=== PATIENT | male | born 1935 | race Caucasian/White ===

== ENCOUNTER 2019-05-12 11:22 | Inpatient (IN) | payer MEDICARE, BC ==
[2019-05-12 11:52] LABS: ADD MAN DIFF? NO
[2019-05-12 11:53] LABS: WHITE BLOOD COUNT 5.8 10^3/ul (4.8-10.8)
[2019-05-12 11:53] LABS: ABNORMAL IP MESSAGE 1; BASOPHILS % 0.5 % (0.0-2.0); EOSINOPHILS # 0.1 10^3/ul (0.0-0.5); EOSINOPHILS % 0.9 % (0.0-7.0); HEMATOCRIT 42.8 % (42.0-52.0); HEMOGLOBIN 14.1 g/dl (14.0-18.0); LYMPHOCYTES # 0.5 10^3/ul (0.8-2.9); LYMPHOCYTES % 9.3 % (15.0-51.0); MEAN CORPUSCULAR HEMOGLOBIN 30.6 pg (29.0-33.0); MEAN CORPUSCULAR HGB CONC 32.9 g/dl (32.0-37.0); MEAN CORPUSCULAR VOLUME 92.8 fl (82.0-101.0); MONOCYTE # 0.5 10^3/ul (0.3-0.9); MONOCYTES % 8.2 % (0.0-11.0); NEUTROPHIL # 4.7 10^3/ul (1.6-7.5); NEUTROPHILS % 80.9 % (39.0-77.0); PLATELET COUNT 245 10^3/UL (140-415); POSITIVE DIFF @See below; RED BLOOD COUNT 4.61 10^6/ul (4.70-6.10); RED CELL DISTRIBUTION WIDTH 13.9 % (11.5-14.5)
[2019-05-12 12:11] LABS: ANION GAP 7 (5-13); BLOOD UREA NITROGEN 13 mg/dl (7-20); CALCIUM 9.5 mg/dl (8.4-10.2); CARBON DIOXIDE 28 mmol/L (21-31); CHLORIDE 104 mmol/L (97-110); GLUCOSE 172 mg/dl (70-220); POTASSIUM 4.3 mmol/L (3.5-5.1); SODIUM 139 mmol/L (135-144)
[2019-05-12 12:23] LABS: TROPONIN-I < 0.012 ng/ml (0.000-0.120)
[2019-05-12] MEDS ORDERED: NACL 0.9% 3 ML SYG IV (14:00)
[2019-05-12] MEDS ORDERED: MAGNESIUM HYDROXIDE 30ML CUP PO (14:00)
[2019-05-12] MEDS ORDERED: CALCIUM CARBONATE 500 MG CHEW TAB PO (14:00)
[2019-05-12] MEDS ORDERED: DOCUSATE SODIUM 100 MG CAP PO (14:00)
[2019-05-12] MEDS ORDERED: ONDANSETRON 4 MG INJ IV ×2 (14:00)
[2019-05-12] MEDS ORDERED: ACETAMINOPHEN 325 MG TAB PO ×2 (14:00)
[2019-05-12] MEDS ORDERED: NITROGLYCERIN (SL) 0.4 MG TAB SL (14:00)
[2019-05-12] MEDS ORDERED: ALBUTEROL 0.083% (NEB) 2.5 MG/3 ML AMP HHN (15:00)
[2019-05-12] MEDS: HEPARIN 5,000 UNIT/1 ML VIAL SC ×2 (16:06→23:50)
[2019-05-12] MEDS: AMLODIPINE 5 MG TAB PO ×2 (16:34→23:12)
[2019-05-12] MEDS: HYDROCHLOROTHIAZIDE 12.5 MG CAP PO (16:35)
[2019-05-12 17:39] LABS: HEMOGLOBIN A1C 5.7 % (0-5.9)
[2019-05-12 21:07] LABS: CREATINE KINASE 139 IU/L (23-200)
[2019-05-12 21:18] LABS: CK INDEX 3.7; TROPONIN-I < 0.012 ng/ml (0.000-0.120)
[2019-05-12 21:19] LABS: CK-MB 5.18 ng/ml (0.0-2.4)
[2019-05-12] MEDS: METOPROLOL 25 MG TAB PO (23:12)
[2019-05-12] MEDS: LOSARTAN 25 MG TAB PO (23:12)
[2019-05-13 03:04] LABS: CREATINE KINASE 176 IU/L (23-200)
[2019-05-13 03:16] LABS: CK INDEX 2.7; TROPONIN-I 0.019 ng/ml (0.000-0.120)
[2019-05-13 03:19] LABS: CK-MB 4.83 ng/ml (0.0-2.4)
[2019-05-13] MEDS: PANTOPRAZOLE (EC) 40 MG TAB PO (05:43)
[2019-05-13] MEDS: HEPARIN 5,000 UNIT/1 ML VIAL SC ×3 (06:37→21:53)
[2019-05-13 08:04] LABS: ADD MAN DIFF? NO
[2019-05-13 08:20] LABS: BASOPHILS % 0.8 % (0.0-2.0); EOSINOPHILS # 0.1 10^3/ul (0.0-0.5); EOSINOPHILS % 2.1 % (0.0-7.0); HEMATOCRIT 45.5 % (42.0-52.0); LYMPHOCYTES # 0.8 10^3/ul (0.8-2.9); LYMPHOCYTES % 14.8 % (15.0-51.0); MEAN CORPUSCULAR HEMOGLOBIN 30.3 pg (29.0-33.0); MEAN CORPUSCULAR VOLUME 91.9 fl (82.0-101.0); MONOCYTE # 0.6 10^3/ul (0.3-0.9); MONOCYTES % 11.1 % (0.0-11.0); NEUTROPHIL # 3.6 10^3/ul (1.6-7.5); NEUTROPHILS % 70.8 % (39.0-77.0); PLATELET COUNT 254 10^3/UL (140-415); RED BLOOD COUNT 4.95 10^6/ul (4.70-6.10); RED CELL DISTRIBUTION WIDTH 13.7 % (11.5-14.5)
[2019-05-13 08:20] LABS: WHITE BLOOD COUNT 5.1 10^3/ul (4.8-10.8)
[2019-05-13] MEDS: FLUTICASONE/VILANTEROL 200-25 INH DEVICE INH (08:27)
[2019-05-13] MEDS: TIOTROPIUM 18 MCG CAPSULE INHA DEV INH (08:28)
[2019-05-13] MEDS: ASPIRIN 81 MG TAB PO (08:28)
[2019-05-13] MEDS: HYDROCHLOROTHIAZIDE 12.5 MG CAP PO (08:29)
[2019-05-13] MEDS: MONTELUKAST 10 MG TAB PO (08:29)
[2019-05-13] MEDS: METOPROLOL 25 MG TAB PO ×2 (08:30→21:42)
[2019-05-13] MEDS: LOSARTAN 25 MG TAB PO ×2 (08:30→21:42)
[2019-05-13] MEDS: AMLODIPINE 5 MG TAB PO ×2 (08:30→21:41)
[2019-05-13 08:46] LABS: ANION GAP 10 (5-13); BLOOD UREA NITROGEN 11 mg/dl (7-20); CALCIUM 9.6 mg/dl (8.4-10.2); CARBON DIOXIDE 30 mmol/L (21-31); CHLORIDE 99 mmol/L (97-110); CHOLESTEROL 151 mg/dl (100-200); GLUCOSE 91 mg/dl (70-220); HDL CHOLESTEROL 49 mg/dl (31-75); LDL CHOLESTEROL,CALCULATED 88 mg/dl; POTASSIUM 3.5 mmol/L (3.5-5.1); SODIUM 139 mmol/L (135-144); TRIGLYCERIDES 72 mg/dl (0-149)
[2019-05-13] MEDS ORDERED: NON-FORMULARY/PATIENT OWN MED (Olmesartan/Amlodipin/Hcthiazid (Olmsrtn-Amldpn-Hctz 40-10-2 ORAL (09:00)
[2019-05-13] MEDS: hydrALAzine 20 MG INJ IV (11:39)
[2019-05-13] MEDS: RISPERIDONE 0.25 MG TAB PO (16:17)
[2019-05-14] MEDS: PANTOPRAZOLE (EC) 40 MG TAB PO (05:58)
[2019-05-14] MEDS: HEPARIN 5,000 UNIT/1 ML VIAL SC ×3 (05:58→21:27)
[2019-05-14] MEDS: ASPIRIN 81 MG TAB PO (09:01)
[2019-05-14] MEDS: HYDROCHLOROTHIAZIDE 12.5 MG CAP PO (09:03)
[2019-05-14] MEDS: LOSARTAN 25 MG TAB PO ×2 (09:03→21:03)
[2019-05-14] MEDS: METOPROLOL 25 MG TAB PO ×2 (09:04→21:02)
[2019-05-14] MEDS: TIOTROPIUM 18 MCG CAPSULE INHA DEV INH (09:05)
[2019-05-14] MEDS: AMLODIPINE 5 MG TAB PO ×2 (09:05→21:03)
[2019-05-14] MEDS: MONTELUKAST 10 MG TAB PO (09:06)
[2019-05-14] MEDS: FLUTICASONE/VILANTEROL 200-25 INH DEVICE INH (09:16)
[2019-05-14] MEDS ORDERED: LORAZEPAM 1 MG TAB PO (12:30)
[2019-05-14] MEDS: QUETIAPINE 25 MG TAB PO (13:39)
[2019-05-14 13:44] LABS: ADD UMIC NO; UR ASCORBIC ACID NEGATIVE (NEGATIVE); UR BILIRUBIN (Dip) NEGATIVE (NEGATIVE); UR BLOOD (Dip) NEGATIVE (NEGATIVE); UR CLARITY CLEAR (CLEAR); UR COLOR YELLOW (YELLOW); UR GLUCOSE (Dip) NEGATIVE (NEGATIVE); UR KETONES (Dip) NEGATIVE (NEGATIVE); UR LEUKOCYTE ESTERASE (Dip) NEGATIVE Leu/ul (NEGATIVE); UR NITRITE (Dip) NEGATIVE (NEGATIVE); UR SPECIFIC GRAVITY (Dip) 1.009 (1.003-1.030); UR TOTAL PROTEIN (Dip) NEGATIVE (NEGATIVE); UR UROBILINOGEN (Dip) NEGATIVE (NEGATIVE)
[2019-05-14] MEDS: THIAMINE 100 MG TAB PO (16:24)
[2019-05-14] MEDS: FOLIC ACID 1 MG TAB PO (16:24)
[2019-05-14 18:59] LABS: AMPHETAMINE/METHAMPHETAMINE NEGATIVE (NEGATIVE); BARBITURATES NEGATIVE (NEGATIVE); BENZODIAZEPINES NEGATIVE (NEGATIVE); CANNABINOIDS NEGATIVE (NEGATIVE); COCAINE NEGATIVE (NEGATIVE); OPIATES NEGATIVE (NEGATIVE)
[2019-05-14] MEDS: CHLORDIAZEPOXIDE 25 MG CAP PO (21:02)
[2019-05-14] MEDS: ATORVASTATIN 20 MG TAB PO (21:02)
[2019-05-15] MEDS: PANTOPRAZOLE (EC) 40 MG TAB PO (06:29)
[2019-05-15 06:56] LABS: ADD MAN DIFF? NO
[2019-05-15 06:59] LABS: BASOPHILS % 0.5 % (0.0-2.0); EOSINOPHILS # 0.3 10^3/ul (0.0-0.5); EOSINOPHILS % 3.8 % (0.0-7.0); HEMATOCRIT 42.3 % (42.0-52.0); LYMPHOCYTES # 1.1 10^3/ul (0.8-2.9); LYMPHOCYTES % 14.2 % (15.0-51.0); MEAN CORPUSCULAR HEMOGLOBIN 30.3 pg (29.0-33.0); MEAN CORPUSCULAR HGB CONC 33.1 g/dl (32.0-37.0); MEAN CORPUSCULAR VOLUME 91.6 fl (82.0-101.0); MEAN PLATELET VOLUME 9.8 fl (7.4-10.4); MONOCYTE # 0.8 10^3/ul (0.3-0.9); MONOCYTES % 10.1 % (0.0-11.0); NEUTROPHIL # 5.3 10^3/ul (1.6-7.5); NEUTROPHILS % 71.1 % (39.0-77.0); PLATELET COUNT 268 10^3/UL (140-415); RED BLOOD COUNT 4.62 10^6/ul (4.70-6.10)
[2019-05-15 06:59] LABS: WHITE BLOOD COUNT 7.4 10^3/ul (4.8-10.8)
[2019-05-15 07:23] LABS: ALBUMIN 3.5 g/dl (3.3-4.9); ANION GAP 6 (5-13); BLOOD UREA NITROGEN 25 mg/dl (7-20); CALCIUM 9.6 mg/dl (8.4-10.2); CARBON DIOXIDE 31 mmol/L (21-31); CHLORIDE 99 mmol/L (97-110); CREATININE 0.87 mg/dl (0.61-1.24); GLUCOSE 127 mg/dl (70-220); MAGNESIUM 2.1 mg/dl (1.7-2.5); PHOSPHORUS 4.2 mg/dl (2.5-4.9); POTASSIUM 4.1 mmol/L (3.5-5.1); SODIUM 136 mmol/L (135-144)
[2019-05-15] MEDS: HEPARIN 5,000 UNIT/1 ML VIAL SC ×3 (07:42→21:57)
[2019-05-15] MEDS: TIOTROPIUM 18 MCG CAPSULE INHA DEV INH (09:03)
[2019-05-15] MEDS: FLUTICASONE/VILANTEROL 200-25 INH DEVICE INH (09:03)
[2019-05-15] MEDS: CHLORDIAZEPOXIDE 25 MG CAP PO ×3 (09:04→21:54)
[2019-05-15] MEDS: FOLIC ACID 1 MG TAB PO (09:04)
[2019-05-15] MEDS: ASPIRIN 81 MG TAB PO (09:04)
[2019-05-15] MEDS: THIAMINE 100 MG TAB PO (09:06)
[2019-05-15] MEDS: MONTELUKAST 10 MG TAB PO (09:06)
[2019-05-15] MEDS: LOSARTAN 25 MG TAB PO ×2 (09:07→21:55)
[2019-05-15] MEDS: METOPROLOL 25 MG TAB PO ×2 (09:07→21:55)
[2019-05-15] MEDS: HYDROCHLOROTHIAZIDE 12.5 MG CAP PO (09:07)
[2019-05-15] MEDS: AMLODIPINE 5 MG TAB PO ×2 (09:07→21:00)
[2019-05-15] MEDS: CLOPIDOGREL 75 MG TAB PO (10:06)
[2019-05-15] MEDS: ATORVASTATIN 20 MG TAB PO (21:54)
[2019-05-16] MEDS: PANTOPRAZOLE (EC) 40 MG TAB PO (05:38)
[2019-05-16] MEDS: HEPARIN 5,000 UNIT/1 ML VIAL SC ×3 (05:40→22:14)
[2019-05-16 05:58] LABS: ADD MAN DIFF? NO
[2019-05-16 06:08] LABS: BASOPHILS % 0.7 % (0.0-2.0); EOSINOPHILS # 0.3 10^3/ul (0.0-0.5); EOSINOPHILS % 5.4 % (0.0-7.0); HEMATOCRIT 43.8 % (42.0-52.0); HEMOGLOBIN 14.1 g/dl (14.0-18.0); LYMPHOCYTES # 0.9 10^3/ul (0.8-2.9); LYMPHOCYTES % 15.2 % (15.0-51.0); MEAN CORPUSCULAR HEMOGLOBIN 30.5 pg (29.0-33.0); MEAN CORPUSCULAR HGB CONC 32.2 g/dl (32.0-37.0); MEAN CORPUSCULAR VOLUME 94.8 fl (82.0-101.0); MONOCYTE # 0.6 10^3/ul (0.3-0.9); MONOCYTES % 10.1 % (0.0-11.0); NEUTROPHIL # 4.1 10^3/ul (1.6-7.5); NEUTROPHILS % 68.1 % (39.0-77.0); PLATELET COUNT 261 10^3/UL (140-415); RED BLOOD COUNT 4.62 10^6/ul (4.70-6.10); RED CELL DISTRIBUTION WIDTH 14.1 % (11.5-14.5)
[2019-05-16 06:08] LABS: WHITE BLOOD COUNT 5.9 10^3/ul (4.8-10.8)
[2019-05-16 06:38] LABS: ALBUMIN 3.4 g/dl (3.3-4.9); ANION GAP 5 (5-13); BLOOD UREA NITROGEN 26 mg/dl (7-20); CALCIUM 9.6 mg/dl (8.4-10.2); CARBON DIOXIDE 31 mmol/L (21-31); CHLORIDE 99 mmol/L (97-110); GLUCOSE 137 mg/dl (70-220); PHOSPHORUS 3.8 mg/dl (2.5-4.9); POTASSIUM 4.2 mmol/L (3.5-5.1); SODIUM 135 mmol/L (135-144)
[2019-05-16] MEDS: FLUTICASONE/VILANTEROL 200-25 INH DEVICE INH (09:11)
[2019-05-16] MEDS: CLOPIDOGREL 75 MG TAB PO (09:12)
[2019-05-16] MEDS: FOLIC ACID 1 MG TAB PO (09:12)
[2019-05-16] MEDS: TIOTROPIUM 18 MCG CAPSULE INHA DEV INH (09:12)
[2019-05-16] MEDS: ASPIRIN 81 MG TAB PO (09:12)
[2019-05-16] MEDS: METOPROLOL 25 MG TAB PO ×2 (09:12→20:01)
[2019-05-16] MEDS: CHLORDIAZEPOXIDE 25 MG CAP PO ×3 (09:12→20:00)
[2019-05-16] MEDS: THIAMINE 100 MG TAB PO (09:13)
[2019-05-16] MEDS: MONTELUKAST 10 MG TAB PO (09:13)
[2019-05-16] MEDS: HYDROCHLOROTHIAZIDE 12.5 MG CAP PO (09:13)
[2019-05-16] MEDS: AMLODIPINE 5 MG TAB PO ×2 (09:14→20:01)
[2019-05-16] MEDS: LOSARTAN 25 MG TAB PO ×2 (09:14→20:00)
[2019-05-16] MEDS: ATORVASTATIN 20 MG TAB PO (20:02)
[2019-05-17] MEDS: PANTOPRAZOLE (EC) 40 MG TAB PO (05:52)
[2019-05-17] MEDS: HEPARIN 5,000 UNIT/1 ML VIAL SC ×3 (05:55→21:38)
[2019-05-17 07:27] LABS: ADD MAN DIFF? NO
[2019-05-17 07:34] LABS: BASOPHILS % 0.7 % (0.0-2.0); EOSINOPHILS # 0.3 10^3/ul (0.0-0.5); EOSINOPHILS % 4.4 % (0.0-7.0); HEMATOCRIT 43.6 % (42.0-52.0); HEMOGLOBIN 14.2 g/dl (14.0-18.0); LYMPHOCYTES # 0.8 10^3/ul (0.8-2.9); LYMPHOCYTES % 14.7 % (15.0-51.0); MEAN CORPUSCULAR HEMOGLOBIN 30.7 pg (29.0-33.0); MEAN CORPUSCULAR HGB CONC 32.6 g/dl (32.0-37.0); MEAN CORPUSCULAR VOLUME 94.4 fl (82.0-101.0); MEAN PLATELET VOLUME 9.8 fl (7.4-10.4); MONOCYTE # 0.6 10^3/ul (0.3-0.9); MONOCYTES % 11.2 % (0.0-11.0); NEUTROPHIL # 3.9 10^3/ul (1.6-7.5); NEUTROPHILS % 68.6 % (39.0-77.0); PLATELET COUNT 225 10^3/UL (140-415); RED BLOOD COUNT 4.62 10^6/ul (4.70-6.10); RED CELL DISTRIBUTION WIDTH 14.1 % (11.5-14.5)
[2019-05-17 07:34] LABS: WHITE BLOOD COUNT 5.6 10^3/ul (4.8-10.8)
[2019-05-17 08:02] LABS: ALBUMIN 3.6 g/dl (3.3-4.9); ANION GAP 7 (5-13); BLOOD UREA NITROGEN 27 mg/dl (7-20); CALCIUM 9.4 mg/dl (8.4-10.2); CARBON DIOXIDE 28 mmol/L (21-31); CHLORIDE 102 mmol/L (97-110); CREATININE 0.64 mg/dl (0.61-1.24); GLUCOSE 127 mg/dl (70-220); PHOSPHORUS 3.6 mg/dl (2.5-4.9); POTASSIUM 5.1 mmol/L (3.5-5.1); SODIUM 137 mmol/L (135-144)
[2019-05-17] MEDS: FLUTICASONE/VILANTEROL 200-25 INH DEVICE INH (09:04)
[2019-05-17] MEDS: ASPIRIN 81 MG TAB PO (09:05)
[2019-05-17] MEDS: FOLIC ACID 1 MG TAB PO (09:05)
[2019-05-17] MEDS: METOPROLOL 25 MG TAB PO ×2 (09:05→21:36)
[2019-05-17] MEDS: CHLORDIAZEPOXIDE 25 MG CAP PO ×3 (09:05→21:35)
[2019-05-17] MEDS: CLOPIDOGREL 75 MG TAB PO (09:05)
[2019-05-17] MEDS: TIOTROPIUM 18 MCG CAPSULE INHA DEV INH (09:05)
[2019-05-17] MEDS: MONTELUKAST 10 MG TAB PO (09:06)
[2019-05-17] MEDS: THIAMINE 100 MG TAB PO (09:06)
[2019-05-17] MEDS: LOSARTAN 25 MG TAB PO ×2 (09:06→21:37)
[2019-05-17] MEDS: AMLODIPINE 5 MG TAB PO ×2 (09:06→21:36)
[2019-05-17] MEDS: HYDROCHLOROTHIAZIDE 12.5 MG CAP PO (09:07)
[2019-05-17 13:43] LABS: ADD UMIC NO; UR ASCORBIC ACID NEGATIVE (NEGATIVE); UR BILIRUBIN (Dip) NEGATIVE (NEGATIVE); UR BLOOD (Dip) NEGATIVE (NEGATIVE); UR CLARITY CLEAR (CLEAR); UR COLOR YELLOW (YELLOW); UR GLUCOSE (Dip) NEGATIVE (NEGATIVE); UR KETONES (Dip) NEGATIVE (NEGATIVE); UR LEUKOCYTE ESTERASE (Dip) NEGATIVE Leu/ul (NEGATIVE); UR NITRITE (Dip) NEGATIVE (NEGATIVE); UR SPECIFIC GRAVITY (Dip) 1.011 (1.003-1.030); UR TOTAL PROTEIN (Dip) NEGATIVE (NEGATIVE); UR UROBILINOGEN (Dip) NEGATIVE (NEGATIVE)
[2019-05-17] MEDS: ATORVASTATIN 20 MG TAB PO (21:37)
[2019-05-18] MEDS: HEPARIN 5,000 UNIT/1 ML VIAL SC ×2 (06:09→12:25)
[2019-05-18] MEDS: PANTOPRAZOLE (EC) 40 MG TAB PO (06:09)
[2019-05-18] MEDS: CHLORDIAZEPOXIDE 25 MG CAP PO ×2 (08:43→12:24)
[2019-05-18] MEDS: FOLIC ACID 1 MG TAB PO (08:43)
[2019-05-18] MEDS: LOSARTAN 25 MG TAB PO (08:44)
[2019-05-18] MEDS: THIAMINE 100 MG TAB PO (08:44)
[2019-05-18] MEDS: MONTELUKAST 10 MG TAB PO (08:44)
[2019-05-18] MEDS: ASPIRIN 81 MG TAB PO (08:44)
[2019-05-18] MEDS: HYDROCHLOROTHIAZIDE 12.5 MG CAP PO (08:44)
[2019-05-18] MEDS: CLOPIDOGREL 75 MG TAB PO (08:45)
[2019-05-18] MEDS: AMLODIPINE 5 MG TAB PO (08:45)
[2019-05-18] MEDS: METOPROLOL 25 MG TAB PO (08:52)
[2019-05-18] MEDS: FLUTICASONE/VILANTEROL 200-25 INH DEVICE INH (08:53)
[2019-05-18] MEDS: TIOTROPIUM 18 MCG CAPSULE INHA DEV INH (08:53)
[2019-05-19 16:37] LABS: VITAMIN B1 (THIAMINE) 193 nmol/L (78-185)
== END 2019-05-18 19:35 | DRG 313 ==
LOC: E/R 11:22 → 2NE 05-15 13:59 → TEL 13:41
PROVIDERS: Internal Medicine
DX: R07.89 Other chest pain (principal); G93.40 Encephalopathy, unspecified; I65.29 Occlusion and stenosis of unspecified carotid artery; I10 Essential (primary) hypertension; R73.03 Prediabetes; Z87.891 Personal history of nicotine dependence; J44.9 Chronic obstructive pulmonary disease, unspecified; R41.0 Disorientation, unspecified; Z72.89 Other problems related to lifestyle; G31.84 Mild cognitive impairment of uncertain or unknown etiology
CPT/HCPCS: 36415; 70545; 70548; 70551; 71045; 80048; 80061; 80069; 80307; 81003; 82550; 82553; 82607; 83036; 83735; 84425; 84443; 84484; 85025; 93005; 93306; 97116; 97161; 97167; 97530; 99285-25; G0378

== ENCOUNTER 2019-05-19 22:20 | Inpatient (IN) | payer MEDICARE, BC, OTHER ==
[2019-05-19] MEDS: SOD CHLORIDE 0.9% 500 ML IV (02:12)
[2019-05-19 22:55] LABS: ADD MAN DIFF? NO
[2019-05-19 22:57] LABS: ABNORMAL IP MESSAGE 1; BASOPHILS % 0.2 % (0.0-2.0); HEMATOCRIT 45.3 % (42.0-52.0); HEMOGLOBIN 14.2 g/dl (14.0-18.0); LYMPHOCYTES # 0.3 10^3/ul (0.8-2.9); MEAN CORPUSCULAR HEMOGLOBIN 30.5 pg (29.0-33.0); MEAN CORPUSCULAR HGB CONC 31.3 g/dl (32.0-37.0); MEAN CORPUSCULAR VOLUME 97.4 fl (82.0-101.0); NEUTROPHIL # 14.6 10^3/ul (1.6-7.5); NEUTROPHILS % 90.9 % (39.0-77.0); PLATELET COUNT 249 10^3/UL (140-415); POSITIVE DIFF @See below; RED BLOOD COUNT 4.65 10^6/ul (4.70-6.10); RED CELL DISTRIBUTION WIDTH 14.4 % (11.5-14.5)
[2019-05-19 22:57] LABS: WHITE BLOOD COUNT 16.1 10^3/ul (4.8-10.8)
[2019-05-19 23:15] LABS: ANION GAP 7 (5-13); BLOOD UREA NITROGEN 28 mg/dl (7-20); CALCIUM 9.8 mg/dl (8.4-10.2); CARBON DIOXIDE 32 mmol/L (21-31); CHLORIDE 97 mmol/L (97-110); CREATININE 0.66 mg/dl (0.61-1.24); GLUCOSE 152 mg/dl (70-220); POTASSIUM 4.8 mmol/L (3.5-5.1); SODIUM 136 mmol/L (135-144)
[2019-05-19 23:18] LABS: INR 1.12; PROTIME 14.5 Sec (11.9-14.9); PT RATIO 1.1
[2019-05-19 23:19] LABS: PARTIAL THROMBOPLASTIN TIME 32.6 Sec (23.0-35.0)
[2019-05-20 00:56] LABS: ADD UMIC YES; UR ASCORBIC ACID NEGATIVE (NEGATIVE); UR BILIRUBIN (Dip) NEGATIVE (NEGATIVE); UR BLOOD (Dip) 3+ mg/dL (NEGATIVE); UR CLARITY CLEAR (CLEAR); UR COLOR YELLOW (YELLOW); UR GLUCOSE (Dip) NEGATIVE (NEGATIVE); UR KETONES (Dip) NEGATIVE (NEGATIVE); UR LEUKOCYTE ESTERASE (Dip) NEGATIVE Leu/ul (NEGATIVE); UR NITRITE (Dip) NEGATIVE (NEGATIVE); UR RBC 173 /HPF (0-5); UR SPECIFIC GRAVITY (Dip) 1.013 (1.003-1.030); UR TOTAL PROTEIN (Dip) NEGATIVE (NEGATIVE); UR UROBILINOGEN (Dip) NEGATIVE (NEGATIVE); UR WBC 2 /HPF (0-5)
[2019-05-20] MEDS ORDERED: ONDANSETRON 4 MG INJ IV ×2 (01:00→02:00)
[2019-05-20] MEDS ORDERED: ACETAMINOPHEN 325 MG TAB PO ×2 (01:00→02:00)
[2019-05-20] MEDS ORDERED: NACL 0.9% 3 ML SYG IV (02:00)
[2019-05-20] MEDS ORDERED: ALBUTEROL/IPRATROPIUM (NEB) 3 ML AMP HHN ×3 (02:00→14:00)
[2019-05-20] MEDS: METHYLPREDNISOLONE 125 MG INJ IV (02:12)
[2019-05-20] MEDS: LEVOFLOXACIN 500MG/D5W (PMX) 100 ML IVPB (02:12)
[2019-05-20 05:44] LABS: ABNORMAL IP MESSAGE 1; HEMATOCRIT 46.8 % (42.0-52.0); HEMOGLOBIN 14.2 g/dl (14.0-18.0); MEAN CORPUSCULAR HEMOGLOBIN 30.4 pg (29.0-33.0); MEAN CORPUSCULAR HGB CONC 30.3 g/dl (32.0-37.0); MEAN CORPUSCULAR VOLUME 100.2 fl (82.0-101.0); MEAN PLATELET VOLUME 10.1 fl (7.4-10.4); PLATELET COUNT 255 10^3/UL (140-415); POSITIVE DIFF @See below; RED BLOOD COUNT 4.67 10^6/ul (4.70-6.10); RED CELL DISTRIBUTION WIDTH 14.6 % (11.5-14.5)
[2019-05-20 05:44] LABS: WHITE BLOOD COUNT 19.9 10^3/ul (4.8-10.8)
[2019-05-20 06:02] LABS: ADD MAN DIFF? YES
[2019-05-20 06:03] LABS: ALANINE AMINOTRANSFERASE 52 IU/L (13-69); ALBUMIN 3.7 g/dl (3.3-4.9); ALBUMIN/GLOBULIN RATIO 1.19; ALKALINE PHOSPHATASE 52 IU/L (42-121); ANION GAP 5 (5-13); ASPARTATE AMINO TRANSFERASE 41 IU/L (15-46); BILIRUBIN,INDIRECT 0.3 mg/dl (0-1.1); BILIRUBIN,TOTAL 0.3 mg/dl (0.2-1.3); BLOOD UREA NITROGEN 32 mg/dl (7-20); CALCIUM 9.6 mg/dl (8.4-10.2); CARBON DIOXIDE 35 mmol/L (21-31); CHLORIDE 99 mmol/L (97-110); CREATININE 0.72 mg/dl (0.61-1.24); GLUCOSE 186 mg/dl (70-220); MAGNESIUM 2.1 mg/dl (1.7-2.5); POTASSIUM 5.5 mmol/L (3.5-5.1); SODIUM 139 mmol/L (135-144); TOTAL PROTEIN 6.8 g/dl (6.1-8.1)
[2019-05-20] MEDS ORDERED: ETOMIDATE 20 MG INJ (07:00)
[2019-05-20] MEDS ORDERED: SUCCINYLCHOLINE CHLORIDE 100 MG/5 ML SYG IV (07:00)
[2019-05-20 07:40] LABS: ANISOCYTOSIS 1+ (0-0); BAND NEUTROPHILS #M 9.3 10^3/ul (0.0-0.6); BAND NEUTROPHILS % (M) 47 % (0-4); BURR CELLS 1+ (0-0); LYMPHOCYTES #M 0.1 10^3/ul (0.8-2.9); LYMPHOCYTES % (M) 1 % (15-51); MICROCYTOSIS 1+ (0-0); MONOCYTE #M 0.5 10^3/ul (0.3-0.9); MONOCYTES % (M) 3 % (0-11); PLATELET ESTIMATE NORMAL; POIKILOCYTOSIS 3+ (0-0); SEG NEUT #M 11.6 10^3/ul (1.6-7.5); SEGMENTED NEUTROPHILS (M) % 49 % (39-77); SMUDGE%M 4 % (0-0); TEAR DROP CELLS 1+ (0-0)
[2019-05-20] MEDS: LOSARTAN 25 MG TAB PO ×2 (09:00→21:00)
[2019-05-20] MEDS: HYDROCHLOROTHIAZIDE 12.5 MG CAP PO (09:00)
[2019-05-20] MEDS ORDERED: NON-FORMULARY/PATIENT OWN MED (Budesonide-Formoterol Fumarate* (Symbicort*) 1 PUFF) INH (09:00)
[2019-05-20] MEDS ORDERED: FLUTICASONE/VILANTEROL 200-25 INH DEVICE INH (09:00)
[2019-05-20] MEDS: AMLODIPINE 5 MG TAB PO ×2 (09:00→21:00)
[2019-05-20] MEDS: METOPROLOL 25 MG TAB PO ×2 (09:00→21:00)
[2019-05-20] MEDS ORDERED: TIOTROPIUM 18 MCG CAPSULE INHA DEV INH (09:00)
[2019-05-20] MEDS ORDERED: DEXTROSE 5%-0.45% NACL 1,000 ML IV (09:30)
[2019-05-20 09:47] LABS: Allen Test ACCEPTAB; Arterial Base Excess 3.5 mmol/L (-3.0-3); Arterial Blood Gas Oxygen Sat 97.1 mmHG (95.0-100.0); Arterial COHb 0.6 % (0.0-3.0); Arterial HCO3 39.3 mmol/L (22.0-26.0); Arterial MetHb 0.5 % (0.0-1.5); MODE NASAL CANNULA; Site Right Radial
[2019-05-20] MEDS ORDERED: CEFEPIME 2GM/50 ML (PMX) 50 ML IVPB (10:20)
[2019-05-20] MEDS ORDERED: VANCOMYCIN IV PER PHARMACY XX (10:30)
[2019-05-20] MEDS: IPRATROPIUM (NEB) 0.5 MG/2.5 ML AMP INH (10:41)
[2019-05-20] MEDS: ALBUTEROL 0.5% (NEB) 2.5 MG/0.5 ML AMP INH (10:42)
[2019-05-20] MEDS: CLOPIDOGREL 75 MG TAB GTB (11:00)
[2019-05-20 11:10] LABS: AADO2 Arterial 564.8 mmHg (7.0-24.0); Allen Test ACCEPTAB; Arterial Base Excess -1.8 mmol/L (-3.0-3); Arterial Blood Gas Oxygen Sat 97.6 mmHG (95.0-100.0); Arterial COHb 0.2 % (0.0-3.0); Arterial Fraction of Oxyhgb 97.1 % (93.0-99.0); Arterial HCO3 25.6 mmol/L (22.0-26.0); Arterial MetHb 0.3 % (0.0-1.5); Arterial pCO2 54.8 mmhg (35-45); MODE VENT - AC; Site Right Radial
[2019-05-20] MEDS: SODIUM CHLORIDE 0.9% 1L BAG IV* (11:13)
[2019-05-20 11:16] LABS: TROPONIN-I 0.031 ng/ml (0.000-0.120)
[2019-05-20] MEDS: PIPER-TAZO 3.375 GM IV (PMX) 100 ML IVPB ×3 (11:17→23:47)
[2019-05-20] MEDS: VANCOMYCIN 1 GM (PMX) 250 ML IVPB (12:30)
[2019-05-20] MEDS: LIDOCAINE 1% (MPF) 5 ML VIAL SC (12:30)
[2019-05-20] MEDS: hydrALAzine 20 MG INJ IV (13:10)
[2019-05-20 13:32] LABS: LACTIC ACID 8.5 mmol/L (0.5-2.0)
[2019-05-20] MEDS: FENTAnyl (DRIP) 1000 mcg/100mL 100 ML IV (13:33)
[2019-05-20] MEDS: METHYLPREDNISOLONE 40 MG INJ IV ×2 (14:11→23:47)
[2019-05-20] MEDS: LORAZEPAM 2 MG INJ IV (14:48)
[2019-05-20] MEDS: FENTAnyl 50 MCG/ML VIAL IV (15:49)
[2019-05-20] MEDS: SOD CHLORIDE 0.9% 1,000 ML IV (16:02)
[2019-05-20] MEDS: SOD CHLORIDE 0.9% 500 ML IV (16:02)
[2019-05-20 16:34] LABS: LACTIC ACID 4.6 mmol/L (0.5-2.0)
[2019-05-20] MEDS: ALBUTEROL HFA 8 GM INHALER INH ×2 (17:00→20:03)
[2019-05-20] MEDS: IPRATROPIUM (HFA) 12.9 GM INHALER INH ×2 (17:00→20:04)
[2019-05-20 18:06] LABS: AADO2 Arterial 193.6 mmHg (7.0-24.0); Allen Test ACCEPTAB; Arterial Base Excess -4.2 mmol/L (-3.0-3); Arterial Blood Gas Oxygen Sat 98.2 mmHG (95.0-100.0); Arterial COHb 0.3 % (0.0-3.0); Arterial Fraction of Oxyhgb 97.4 % (93.0-99.0); Arterial HCO3 21.9 mmol/L (22.0-26.0); Arterial MetHb 0.5 % (0.0-1.5); Arterial pCO2 43.7 mmhg (35-45); MODE VENT - AC; Site Left Radial
[2019-05-20 18:59] LABS: AMPHETAMINE/METHAMPHETAMINE Negative (NEGATIVE); BARBITURATES Negative (NEGATIVE); BENZODIAZEPINES Positive (NEGATIVE); CANNABINOIDS Negative (NEGATIVE); COCAINE Negative (NEGATIVE); OPIATES Negative (NEGATIVE)
[2019-05-20] MEDS: BUDESONIDE (NEB) 0.5MG/2ML AMP HHN (19:53)
[2019-05-20] MEDS: ATORVASTATIN 20 MG TAB PO (23:47)
[2019-05-21] MEDS: IPRATROPIUM (HFA) 12.9 GM INHALER INH ×5 (01:02→21:16)
[2019-05-21] MEDS: ALBUTEROL HFA 8 GM INHALER INH ×5 (01:02→21:16)
[2019-05-21] MEDS: NORepinephrine 8MG/250 ML (PMX 250 ML IV ×2 (01:39→12:25)
[2019-05-21] MEDS: SOD CHLORIDE 0.9% 1,000 ML IV ×3 (03:27→15:03)
[2019-05-21 04:44] LABS: ADD MAN DIFF? NO
[2019-05-21 04:49] LABS: WHITE BLOOD COUNT 13.7 10^3/ul (4.8-10.8)
[2019-05-21 04:49] LABS: ABNORMAL IP MESSAGE 1; HEMATOCRIT 35.3 % (42.0-52.0); HEMOGLOBIN 10.8 g/dl (14.0-18.0); MEAN CORPUSCULAR HEMOGLOBIN 30.5 pg (29.0-33.0); MEAN CORPUSCULAR HGB CONC 30.6 g/dl (32.0-37.0); MEAN CORPUSCULAR VOLUME 99.7 fl (82.0-101.0); MEAN PLATELET VOLUME 10.3 fl (7.4-10.4); PLATELET COUNT 257 10^3/UL (140-415); POSITIVE DIFF @See below; RED BLOOD COUNT 3.54 10^6/ul (4.70-6.10)
[2019-05-21 05:01] LABS: LACTIC ACID 1.8 mmol/L (0.5-2.0)
[2019-05-21 05:08] LABS: ANION GAP 6 (5-13); BLOOD UREA NITROGEN 48 mg/dl (7-20); CALCIUM 8.9 mg/dl (8.4-10.2); CARBON DIOXIDE 24 mmol/L (21-31); CHLORIDE 108 mmol/L (97-110); CREATININE 1.37 mg/dl (0.61-1.24); GLUCOSE 213 mg/dl (70-220); MAGNESIUM 1.9 mg/dl (1.7-2.5); POTASSIUM 4.4 mmol/L (3.5-5.1); SODIUM 138 mmol/L (135-144)
[2019-05-21] MEDS: METHYLPREDNISOLONE 40 MG INJ IV ×3 (05:40→21:54)
[2019-05-21] MEDS: PIPER-TAZO 3.375 GM IV (PMX) 100 ML IVPB ×2 (05:40→12:00)
[2019-05-21] MEDS: FENTAnyl (DRIP) 1000 mcg/100mL 100 ML IV (06:37)
[2019-05-21 07:20] LABS: BAND NEUTROPHILS #M 3.5 10^3/ul (0.0-0.6); BAND NEUTROPHILS % (M) 26 % (0-4); ERYTHROBLAST% (NRBC) (M) 1 % (0-0); GIANT THROMBO% (M) 1 % (0-0); MONOCYTE #M 0.2 10^3/ul (0.3-0.9); MONOCYTES % (M) 2 % (0-11); PLATELET ESTIMATE NORMAL; POIKILOCYTOSIS 1+ (0-0); PROMYELOCYTES #M 0.2 10^3/ul (0-0); PROMYELOCYTES % (M) 2 % (0-0); SEG NEUT #M 10.1 10^3/ul (1.6-7.5); SEGMENTED NEUTROPHILS (M) % 70 % (39-77); SMUDGE%M 20 % (0-0); SPHEROCYTES 1+ (0-0)
[2019-05-21] MEDS: IOHEXOL 100 ML (08:52)
[2019-05-21] MEDS: SOD CHLORIDE 0.9% 100 ML (08:52)
[2019-05-21] MEDS: HYDROCHLOROTHIAZIDE 12.5 MG CAP PO (09:00)
[2019-05-21] MEDS: METOPROLOL 25 MG TAB PO (09:00)
[2019-05-21] MEDS: AMLODIPINE 5 MG TAB PO (09:00)
[2019-05-21] MEDS: VANCOMYCIN 1 GM 250 ML IVPB (09:00)
[2019-05-21] MEDS: LOSARTAN 25 MG TAB PO (09:00)
[2019-05-21 10:42] LABS: AADO2 Arterial 199.8 mmHg (7.0-24.0); Allen Test ACCEPTAB; Arterial Base Excess -3.5 mmol/L (-3.0-3); Arterial COHb 0.3 % (0.0-3.0); Arterial Fraction of Oxyhgb 95.3 % (93.0-99.0); Arterial HCO3 24.6 mmol/L (22.0-26.0); Arterial MetHb 0.4 % (0.0-1.5); Arterial pCO2 58.2 mmhg (35-45); MODE MASK - VENTI; Site Right Radial
[2019-05-21] MEDS ORDERED: PROPOFOL 100 ML (11:29)
[2019-05-21 12:39] LABS: AADO2 Arterial 165.8 mmHg (7.0-24.0); Allen Test ACCEPTAB; Arterial Base Excess -1.6 mmol/L (-3.0-3); Arterial Blood Gas Oxygen Sat 95.8 mmHG (95.0-100.0); Arterial COHb 0.3 % (0.0-3.0); Arterial Fraction of Oxyhgb 95.1 % (93.0-99.0); Arterial HCO3 22.9 mmol/L (22.0-26.0); Arterial MetHb 0.4 % (0.0-1.5); Arterial pCO2 37.6 mmhg (35-45); MODE VENT - AC; Site Right Radial
[2019-05-21] MEDS: PROPOFOL 100 ML IV ×2 (12:42→16:13)
[2019-05-21] MEDS: SOD CHLORIDE 0.9% 500 ML IV (13:00)
[2019-05-21] MEDS: BUDESONIDE (NEB) 0.5MG/2ML AMP HHN ×2 (13:38→19:33)
[2019-05-21] MEDS: CLOPIDOGREL 75 MG TAB GTB (15:02)
[2019-05-21] MEDS: CEFEPIME 1GM/50 ML (PMX) 50 ML IVPB ×2 (15:03→21:54)
[2019-05-21] MEDS: LEVOFLOXACIN 500MG/D5W (PMX) 100 ML IVPB (15:03)
[2019-05-21] MEDS: ATORVASTATIN 20 MG TAB PO (21:00)
[2019-05-22] MEDS: PROPOFOL 100 ML IV ×5 (00:04→23:17)
[2019-05-22] MEDS: ALBUTEROL HFA 8 GM INHALER INH ×6 (01:16→20:19)
[2019-05-22] MEDS: IPRATROPIUM (HFA) 12.9 GM INHALER INH ×6 (01:16→20:19)
[2019-05-22 05:01] LABS: ADD MAN DIFF? NO
[2019-05-22 05:08] LABS: ABNORMAL IP MESSAGE 1; HEMATOCRIT 32.9 % (42.0-52.0); HEMOGLOBIN 10.6 g/dl (14.0-18.0); LYMPHOCYTES # 0.2 10^3/ul (0.8-2.9); MEAN CORPUSCULAR HEMOGLOBIN 30.7 pg (29.0-33.0); MEAN CORPUSCULAR HGB CONC 32.2 g/dl (32.0-37.0); MEAN CORPUSCULAR VOLUME 95.4 fl (82.0-101.0); MEAN PLATELET VOLUME 10.7 fl (7.4-10.4); MONOCYTE # 0.6 10^3/ul (0.3-0.9); MONOCYTES % 5.6 % (0.0-11.0); NEUTROPHIL # 9.1 10^3/ul (1.6-7.5); NEUTROPHILS % 91.5 % (39.0-77.0); PLATELET COUNT 219 10^3/UL (140-415); POSITIVE DIFF @See below; RED BLOOD COUNT 3.45 10^6/ul (4.70-6.10); RED CELL DISTRIBUTION WIDTH 14.8 % (11.5-14.5)
[2019-05-22 05:08] LABS: WHITE BLOOD COUNT 9.9 10^3/ul (4.8-10.8)
[2019-05-22] MEDS: METHYLPREDNISOLONE 40 MG INJ IV ×3 (05:30→21:26)
[2019-05-22 05:48] LABS: MAGNESIUM 2.2 mg/dl (1.7-2.5)
[2019-05-22 05:53] LABS: ALANINE AMINOTRANSFERASE 48 IU/L (13-69); ALBUMIN 2.7 g/dl (3.3-4.9); ALKALINE PHOSPHATASE 45 IU/L (42-121); ANION GAP 9 (5-13); ASPARTATE AMINO TRANSFERASE 32 IU/L (15-46); BILIRUBIN,INDIRECT 0.3 mg/dl (0-1.1); BILIRUBIN,TOTAL 0.3 mg/dl (0.2-1.3); BLOOD UREA NITROGEN 48 mg/dl (7-20); CARBON DIOXIDE 21 mmol/L (21-31); CHLORIDE 111 mmol/L (97-110); CREATININE 1.12 mg/dl (0.61-1.24); GLUCOSE 188 mg/dl (70-220); SODIUM 141 mmol/L (135-144); TOTAL PROTEIN 5.4 g/dl (6.1-8.1)
[2019-05-22 08:27] LABS: AADO2 Arterial 131.1 mmHg (7.0-24.0); Allen Test ACCEPTAB; Arterial Base Excess -3.7 mmol/L (-3.0-3); Arterial Blood Gas Oxygen Sat 97.9 mmHG (95.0-100.0); Arterial COHb 0.3 % (0.0-3.0); Arterial Fraction of Oxyhgb 97.4 % (93.0-99.0); Arterial HCO3 20.2 mmol/L (22.0-26.0); Arterial MetHb 0.2 % (0.0-1.5); Arterial pCO2 32.9 mmhg (35-45); MODE VENT - AC; Site Right Radial
[2019-05-22] MEDS: BUDESONIDE (NEB) 0.5MG/2ML AMP HHN ×3 (08:51→20:18)
[2019-05-22] MEDS: CEFEPIME 1GM/50 ML (PMX) 50 ML IVPB ×2 (10:11→21:27)
[2019-05-22] MEDS: CLOPIDOGREL 75 MG TAB GTB (10:11)
[2019-05-22] MEDS: SOD CHLORIDE 0.9% 1,000 ML IV ×2 (10:12→17:25)
[2019-05-22] MEDS: LEVOFLOXACIN 500MG/D5W (PMX) 100 ML IVPB (14:54)
[2019-05-22] MEDS: ATORVASTATIN 20 MG TAB PO (21:26)
[2019-05-23] MEDS: ALBUTEROL HFA 8 GM INHALER INH ×5 (01:06→19:40)
[2019-05-23] MEDS: IPRATROPIUM (HFA) 12.9 GM INHALER INH ×5 (01:06→19:40)
[2019-05-23] MEDS: PROPOFOL 100 ML IV ×2 (03:39→10:49)
[2019-05-23] MEDS: SOD CHLORIDE 0.9% 1,000 ML IV (03:39)
[2019-05-23 04:51] LABS: ADD MAN DIFF? NO
[2019-05-23 05:00] LABS: WHITE BLOOD COUNT 6.2 10^3/ul (4.8-10.8)
[2019-05-23 05:00] LABS: ABNORMAL IP MESSAGE 1; BASOPHILS % 0.2 % (0.0-2.0); HEMATOCRIT 32.5 % (42.0-52.0); HEMOGLOBIN 10.3 g/dl (14.0-18.0); LYMPHOCYTES # 0.2 10^3/ul (0.8-2.9); LYMPHOCYTES % 2.6 % (15.0-51.0); MEAN CORPUSCULAR HEMOGLOBIN 30.8 pg (29.0-33.0); MEAN CORPUSCULAR HGB CONC 31.7 g/dl (32.0-37.0); MEAN CORPUSCULAR VOLUME 97.3 fl (82.0-101.0); MEAN PLATELET VOLUME 10.8 fl (7.4-10.4); MONOCYTE # 0.4 10^3/ul (0.3-0.9); MONOCYTES % 6.5 % (0.0-11.0); NEUTROPHIL # 5.6 10^3/ul (1.6-7.5); NEUTROPHILS % 90.1 % (39.0-77.0); PLATELET COUNT 194 10^3/UL (140-415); POSITIVE DIFF @See below; RED BLOOD COUNT 3.34 10^6/ul (4.70-6.10); RED CELL DISTRIBUTION WIDTH 14.8 % (11.5-14.5)
[2019-05-23 05:27] LABS: ALANINE AMINOTRANSFERASE 39 IU/L (13-69); ALBUMIN 2.6 g/dl (3.3-4.9); ALBUMIN/GLOBULIN RATIO 1.04; ALKALINE PHOSPHATASE 39 IU/L (42-121); ANION GAP 6 (5-13); ASPARTATE AMINO TRANSFERASE 21 IU/L (15-46); BILIRUBIN,INDIRECT 0.2 mg/dl (0-1.1); BILIRUBIN,TOTAL 0.2 mg/dl (0.2-1.3); BLOOD UREA NITROGEN 44 mg/dl (7-20); CALCIUM 8.8 mg/dl (8.4-10.2); CARBON DIOXIDE 22 mmol/L (21-31); CHLORIDE 115 mmol/L (97-110); CREATININE 0.85 mg/dl (0.61-1.24); GLUCOSE 257 mg/dl (70-220); POTASSIUM 4.3 mmol/L (3.5-5.1); SODIUM 143 mmol/L (135-144); TOTAL PROTEIN 5.1 g/dl (6.1-8.1)
[2019-05-23 05:29] LABS: MAGNESIUM 2.4 mg/dl (1.7-2.5)
[2019-05-23] MEDS: LANSOPRAZOLE 30 MG CAP GTB (05:29)
[2019-05-23] MEDS: METHYLPREDNISOLONE 40 MG INJ IV ×3 (06:19→21:32)
[2019-05-23] MEDS: BUDESONIDE (NEB) 0.5MG/2ML AMP HHN ×3 (08:03→19:40)
[2019-05-23] MEDS: CEFEPIME 1GM/50 ML (PMX) 50 ML IVPB ×2 (08:12→21:33)
[2019-05-23] MEDS: CLOPIDOGREL 75 MG TAB GTB (08:13)
[2019-05-23] MEDS: LEVOFLOXACIN 500MG/D5W (PMX) 100 ML IVPB (13:51)
[2019-05-23] MEDS ORDERED: IPRATROPIUM (HFA) 12.9 GM INHALER INH (18:00)
[2019-05-23] MEDS ORDERED: ALBUTEROL HFA 8 GM INHALER INH (18:00)
[2019-05-23] MEDS: DEXTROSE 5%-0.45% NACL 1,000 ML IV (18:01)
[2019-05-23] MEDS: MIDAZOLAM (DRIP) 50 mg/50 mL 50 ML IV ×2 (18:01→23:59)
[2019-05-23] MEDS: ATORVASTATIN 20 MG TAB PO (21:32)
[2019-05-24] MEDS: DEXTROSE 5%-0.45% NACL 1,000 ML IV ×2 (00:08→08:57)
[2019-05-24] MEDS: hydrALAzine 20 MG INJ IV ×2 (00:08→09:04)
[2019-05-24] MEDS: ALBUTEROL HFA 8 GM INHALER INH ×4 (01:17→19:50)
[2019-05-24] MEDS: IPRATROPIUM (HFA) 12.9 GM INHALER INH ×4 (01:17→19:50)
[2019-05-24] MEDS: morphine 4 MG/ML VIAL IV (01:49)
[2019-05-24] MEDS: METOPROLOL 5 MG INJ IV (01:59)
[2019-05-24 05:10] LABS: ADD MAN DIFF? NO
[2019-05-24 05:15] LABS: ABNORMAL IP MESSAGE 1; BASOPHILS % 0.1 % (0.0-2.0); LYMPHOCYTES # 0.2 10^3/ul (0.8-2.9); LYMPHOCYTES % 1.7 % (15.0-51.0); MEAN CORPUSCULAR HEMOGLOBIN 30.7 pg (29.0-33.0); MEAN CORPUSCULAR HGB CONC 31.6 g/dl (32.0-37.0); MEAN CORPUSCULAR VOLUME 97.2 fl (82.0-101.0); MEAN PLATELET VOLUME 10.4 fl (7.4-10.4); MONOCYTE # 0.7 10^3/ul (0.3-0.9); NEUTROPHIL # 9.1 10^3/ul (1.6-7.5); NEUTROPHILS % 90.5 % (39.0-77.0); PLATELET COUNT 210 10^3/UL (140-415); POSITIVE DIFF @See below; RED BLOOD COUNT 3.91 10^6/ul (4.70-6.10)
[2019-05-24] MEDS: LANSOPRAZOLE 30 MG CAP GTB (05:32)
[2019-05-24] MEDS: METHYLPREDNISOLONE 40 MG INJ IV ×3 (05:32→21:05)
[2019-05-24 05:41] LABS: ANION GAP 5 (5-13); BLOOD UREA NITROGEN 37 mg/dl (7-20); CALCIUM 9.2 mg/dl (8.4-10.2); CARBON DIOXIDE 23 mmol/L (21-31); CHLORIDE 113 mmol/L (97-110); CREATININE 0.72 mg/dl (0.61-1.24); GLUCOSE 320 mg/dl (70-220); MAGNESIUM 2.5 mg/dl (1.7-2.5); PHOSPHORUS 2.5 mg/dl (2.5-4.9); POTASSIUM 4.5 mmol/L (3.5-5.1); SODIUM 141 mmol/L (135-144)
[2019-05-24] MEDS: BUDESONIDE (NEB) 0.5MG/2ML AMP HHN ×2 (08:02→19:50)
[2019-05-24] MEDS: CLOPIDOGREL 75 MG TAB GTB (08:56)
[2019-05-24] MEDS: CEFEPIME 1GM/50 ML (PMX) 50 ML IVPB ×2 (08:56→20:46)
[2019-05-24] MEDS: MIDAZOLAM (DRIP) 50 mg/50 mL 50 ML IV ×2 (11:03→20:47)
[2019-05-24] MEDS: PROPOFOL 100 ML IV ×2 (11:04→21:05)
[2019-05-24] MEDS: LEVOFLOXACIN 500MG/D5W (PMX) 100 ML IVPB (13:23)
[2019-05-24] MEDS: AMLODIPINE 5 MG TAB PO (20:46)
[2019-05-24] MEDS: LOSARTAN 25 MG TAB PO (20:46)
[2019-05-24] MEDS: ATORVASTATIN 20 MG TAB PO (20:46)
[2019-05-25] MEDS: IPRATROPIUM (HFA) 12.9 GM INHALER INH ×4 (02:16→19:17)
[2019-05-25] MEDS: ALBUTEROL HFA 8 GM INHALER INH ×4 (02:16→19:17)
[2019-05-25] MEDS: MIDAZOLAM (DRIP) 50 mg/50 mL 50 ML IV (03:35)
[2019-05-25 05:09] LABS: ADD MAN DIFF? NO
[2019-05-25 05:13] LABS: WHITE BLOOD COUNT 11.2 10^3/ul (4.8-10.8)
[2019-05-25 05:13] LABS: ABNORMAL IP MESSAGE 1; BASOPHILS % 0.2 % (0.0-2.0); HEMATOCRIT 38.4 % (42.0-52.0); HEMOGLOBIN 12.2 g/dl (14.0-18.0); LYMPHOCYTES # 0.3 10^3/ul (0.8-2.9); LYMPHOCYTES % 2.8 % (15.0-51.0); MEAN CORPUSCULAR HGB CONC 31.8 g/dl (32.0-37.0); MEAN CORPUSCULAR VOLUME 97.5 fl (82.0-101.0); MEAN PLATELET VOLUME 10.7 fl (7.4-10.4); MONOCYTE # 0.8 10^3/ul (0.3-0.9); MONOCYTES % 6.9 % (0.0-11.0); NEUTROPHILS % 89.1 % (39.0-77.0); PLATELET COUNT 218 10^3/UL (140-415); POSITIVE DIFF @See below; RED BLOOD COUNT 3.94 10^6/ul (4.70-6.10); RED CELL DISTRIBUTION WIDTH 15.1 % (11.5-14.5)
[2019-05-25 05:29] LABS: BLOOD UREA NITROGEN 36 mg/dl (7-20); CALCIUM 9.4 mg/dl (8.4-10.2); CARBON DIOXIDE 24 mmol/L (21-31); CHLORIDE 113 mmol/L (97-110); CREATININE 0.68 mg/dl (0.61-1.24); GLUCOSE 244 mg/dl (70-220); MAGNESIUM 2.5 mg/dl (1.7-2.5); PHOSPHORUS 2.7 mg/dl (2.5-4.9); POTASSIUM 4.7 mmol/L (3.5-5.1)
[2019-05-25] MEDS: LANSOPRAZOLE 30 MG CAP GTB (06:00)
[2019-05-25] MEDS: METHYLPREDNISOLONE 40 MG INJ IV ×3 (06:12→20:34)
[2019-05-25 06:27] LABS: ANION GAP 7 (5-13); SODIUM 144 mmol/L (135-144)
[2019-05-25] MEDS: AMLODIPINE 5 MG TAB PO ×2 (08:28→20:37)
[2019-05-25] MEDS: CLOPIDOGREL 75 MG TAB GTB (08:28)
[2019-05-25] MEDS: LOSARTAN 25 MG TAB PO ×2 (08:29→20:37)
[2019-05-25] MEDS: PROPOFOL 100 ML IV ×3 (08:29→17:45)
[2019-05-25] MEDS: CEFEPIME 1GM/50 ML (PMX) 50 ML IVPB ×2 (08:29→20:37)
[2019-05-25] MEDS: BUDESONIDE (NEB) 0.5MG/2ML AMP HHN ×2 (08:45→19:17)
[2019-05-25] MEDS ORDERED: AMLODIPINE 5 MG TAB PO (09:00)
[2019-05-25] MEDS: LEVOFLOXACIN 500MG/D5W (PMX) 100 ML IVPB (12:40)
[2019-05-25] MEDS: INSULIN ASP PROT/ASPART (70/30) PEN SC ×2 (15:21→20:36)
[2019-05-25] MEDS ORDERED: GLUCOSE GEL 15 GRAM TUBE PO ×2 (16:00)
[2019-05-25] MEDS ORDERED: DEXTROSE 50% 50 ML SYRINGE IV ×2 (16:00)
[2019-05-25] MEDS ORDERED: GLUCAGON 1 MG INJ IM (16:00)
[2019-05-25] MEDS ORDERED: GLUCOSE GEL 15 GRAM TUBE BUCCAL (16:00)
[2019-05-25] MEDS: INSULIN ASPART [NOVOLOG] 3 ML PEN SC ×2 (17:49→20:36)
[2019-05-25] MEDS: ATORVASTATIN 20 MG TAB PO (20:37)
[2019-05-26] MEDS: INSULIN ASPART [NOVOLOG] 3 ML PEN SC ×6 (01:03→20:29)
[2019-05-26] MEDS: ALBUTEROL HFA 8 GM INHALER INH ×4 (01:18→19:50)
[2019-05-26] MEDS: IPRATROPIUM (HFA) 12.9 GM INHALER INH ×4 (01:18→19:50)
[2019-05-26] MEDS: PROPOFOL 100 ML IV ×3 (02:50→20:29)
[2019-05-26 05:00] LABS: ADD MAN DIFF? NO
[2019-05-26] MEDS: LANSOPRAZOLE 30 MG CAP GTB (05:02)
[2019-05-26 05:05] LABS: ABNORMAL IP MESSAGE 1; BASOPHILS % 0.1 % (0.0-2.0); HEMATOCRIT 38.7 % (42.0-52.0); HEMOGLOBIN 12.2 g/dl (14.0-18.0); LYMPHOCYTES # 0.2 10^3/ul (0.8-2.9); LYMPHOCYTES % 1.7 % (15.0-51.0); MEAN CORPUSCULAR HGB CONC 31.5 g/dl (32.0-37.0); MEAN CORPUSCULAR VOLUME 98.5 fl (82.0-101.0); MEAN PLATELET VOLUME 10.7 fl (7.4-10.4); MONOCYTE # 0.6 10^3/ul (0.3-0.9); MONOCYTES % 5.1 % (0.0-11.0); NEUTROPHIL # 11.5 10^3/ul (1.6-7.5); NEUTROPHILS % 91.7 % (39.0-77.0); PLATELET COUNT 215 10^3/UL (140-415); POSITIVE DIFF @See below; RED BLOOD COUNT 3.93 10^6/ul (4.70-6.10); RED CELL DISTRIBUTION WIDTH 14.9 % (11.5-14.5)
[2019-05-26 05:05] LABS: WHITE BLOOD COUNT 12.5 10^3/ul (4.8-10.8)
[2019-05-26 05:26] LABS: ALBUMIN 2.7 g/dl (3.3-4.9); ANION GAP 4 (5-13); BLOOD UREA NITROGEN 39 mg/dl (7-20); CALCIUM 9.4 mg/dl (8.4-10.2); CARBON DIOXIDE 26 mmol/L (21-31); CHLORIDE 109 mmol/L (97-110); CREATININE 0.65 mg/dl (0.61-1.24); GLUCOSE 187 mg/dl (70-220); MAGNESIUM 2.5 mg/dl (1.7-2.5); PHOSPHORUS 3.9 mg/dl (2.5-4.9); POTASSIUM 4.8 mmol/L (3.5-5.1); SODIUM 139 mmol/L (135-144)
[2019-05-26] MEDS: DEXMEDETOMIDINE IN DEXTROSE 5% 50 ML IV (08:18)
[2019-05-26] MEDS: CEFEPIME 1GM/50 ML (PMX) 50 ML IVPB ×2 (08:28→20:26)
[2019-05-26] MEDS: LOSARTAN 25 MG TAB PO ×2 (08:31→20:27)
[2019-05-26] MEDS: AMLODIPINE 5 MG TAB PO ×2 (08:31→20:27)
[2019-05-26] MEDS: CLOPIDOGREL 75 MG TAB GTB (08:31)
[2019-05-26] MEDS: METHYLPREDNISOLONE 40 MG INJ IV ×2 (08:32→20:22)
[2019-05-26] MEDS: INSULIN ASP PROT/ASPART (70/30) PEN SC ×2 (08:39→20:26)
[2019-05-26] MEDS: BUDESONIDE (NEB) 0.5MG/2ML AMP HHN ×2 (09:11→19:49)
[2019-05-26] MEDS: LEVOFLOXACIN 500MG/D5W (PMX) 100 ML IVPB (12:55)
[2019-05-26] MEDS: NORepinephrine 8MG/250 ML (PMX 250 ML IV (17:49)
[2019-05-26] MEDS: ATORVASTATIN 20 MG TAB PO (20:27)
[2019-05-27] MEDS: INSULIN ASPART [NOVOLOG] 3 ML PEN SC ×6 (00:56→21:04)
[2019-05-27] MEDS: ALBUTEROL HFA 8 GM INHALER INH ×4 (01:39→19:26)
[2019-05-27] MEDS: IPRATROPIUM (HFA) 12.9 GM INHALER INH ×4 (01:39→19:26)
[2019-05-27 04:51] LABS: ADD MAN DIFF? NO
[2019-05-27 04:54] LABS: ABNORMAL IP MESSAGE 1; BASOPHILS % 0.2 % (0.0-2.0); HEMATOCRIT 38.6 % (42.0-52.0); HEMOGLOBIN 12.3 g/dl (14.0-18.0); LYMPHOCYTES # 0.3 10^3/ul (0.8-2.9); LYMPHOCYTES % 2.7 % (15.0-51.0); MEAN CORPUSCULAR HEMOGLOBIN 31.1 pg (29.0-33.0); MEAN CORPUSCULAR HGB CONC 31.9 g/dl (32.0-37.0); MEAN CORPUSCULAR VOLUME 97.5 fl (82.0-101.0); MEAN PLATELET VOLUME 10.6 fl (7.4-10.4); MONOCYTE # 0.6 10^3/ul (0.3-0.9); MONOCYTES % 4.8 % (0.0-11.0); NEUTROPHIL # 10.6 10^3/ul (1.6-7.5); NEUTROPHILS % 91.1 % (39.0-77.0); PLATELET COUNT 218 10^3/UL (140-415); POSITIVE DIFF @See below; RED BLOOD COUNT 3.96 10^6/ul (4.70-6.10); RED CELL DISTRIBUTION WIDTH 14.6 % (11.5-14.5)
[2019-05-27 04:54] LABS: WHITE BLOOD COUNT 11.6 10^3/ul (4.8-10.8)
[2019-05-27] MEDS: LANSOPRAZOLE 30 MG CAP GTB (05:00)
[2019-05-27 05:12] LABS: ALBUMIN 2.7 g/dl (3.3-4.9); ANION GAP 4 (5-13); BLOOD UREA NITROGEN 36 mg/dl (7-20); CALCIUM 9.3 mg/dl (8.4-10.2); CARBON DIOXIDE 28 mmol/L (21-31); CHLORIDE 107 mmol/L (97-110); GLUCOSE 154 mg/dl (70-220); MAGNESIUM 2.4 mg/dl (1.7-2.5); PHOSPHORUS 3.8 mg/dl (2.5-4.9); POTASSIUM 4.6 mmol/L (3.5-5.1); SODIUM 139 mmol/L (135-144)
[2019-05-27 05:44] LABS: PROCALCITONIN 0.19 ng/mL (0.00-0.10)
[2019-05-27] MEDS: PROPOFOL 100 ML IV ×3 (06:17→22:46)
[2019-05-27] MEDS: CLOPIDOGREL 75 MG TAB GTB (08:56)
[2019-05-27] MEDS: CEFEPIME 1GM/50 ML (PMX) 50 ML IVPB (08:56)
[2019-05-27] MEDS: LOSARTAN 25 MG TAB PO ×2 (08:57→20:49)
[2019-05-27] MEDS: AMLODIPINE 5 MG TAB PO ×2 (08:58→20:50)
[2019-05-27] MEDS: METHYLPREDNISOLONE 40 MG INJ IV ×2 (09:03→20:50)
[2019-05-27] MEDS: INSULIN ASP PROT/ASPART (70/30) PEN SC ×2 (09:08→21:03)
[2019-05-27] MEDS: BUDESONIDE (NEB) 0.5MG/2ML AMP HHN ×2 (09:18→19:24)
[2019-05-27] MEDS: ATORVASTATIN 20 MG TAB PO (20:43)
[2019-05-28] MEDS: IPRATROPIUM (HFA) 12.9 GM INHALER INH ×4 (01:14→20:00)
[2019-05-28] MEDS: ALBUTEROL HFA 8 GM INHALER INH ×4 (01:14→20:00)
[2019-05-28] MEDS: INSULIN ASPART [NOVOLOG] 3 ML PEN SC ×6 (02:10→21:23)
[2019-05-28] MEDS: LANSOPRAZOLE 30 MG CAP GTB (05:02)
[2019-05-28 05:28] LABS: ADD MAN DIFF? NO
[2019-05-28 05:34] LABS: ABNORMAL IP MESSAGE 1; BASOPHILS % 0.2 % (0.0-2.0); EOSINOPHILS % 0.1 % (0.0-7.0); HEMATOCRIT 35.6 % (42.0-52.0); HEMOGLOBIN 11.5 g/dl (14.0-18.0); LYMPHOCYTES # 0.3 10^3/ul (0.8-2.9); LYMPHOCYTES % 2.7 % (15.0-51.0); MEAN CORPUSCULAR HEMOGLOBIN 31.1 pg (29.0-33.0); MEAN CORPUSCULAR HGB CONC 32.3 g/dl (32.0-37.0); MEAN CORPUSCULAR VOLUME 96.2 fl (82.0-101.0); MEAN PLATELET VOLUME 10.7 fl (7.4-10.4); MONOCYTE # 0.5 10^3/ul (0.3-0.9); MONOCYTES % 4.7 % (0.0-11.0); NEUTROPHIL # 9.8 10^3/ul (1.6-7.5); PLATELET COUNT 210 10^3/UL (140-415); POSITIVE DIFF @See below; RED CELL DISTRIBUTION WIDTH 14.5 % (11.5-14.5)
[2019-05-28 05:34] LABS: WHITE BLOOD COUNT 10.8 10^3/ul (4.8-10.8)
[2019-05-28 06:24] LABS: ALBUMIN 2.5 g/dl (3.3-4.9); ANION GAP 4 (5-13); BLOOD UREA NITROGEN 37 mg/dl (7-20); CALCIUM 8.9 mg/dl (8.4-10.2); CARBON DIOXIDE 30 mmol/L (21-31); CHLORIDE 106 mmol/L (97-110); CREATININE 0.52 mg/dl (0.61-1.24); GLUCOSE 169 mg/dl (70-220); MAGNESIUM 2.4 mg/dl (1.7-2.5); PHOSPHORUS 3.5 mg/dl (2.5-4.9); POTASSIUM 4.8 mmol/L (3.5-5.1); SODIUM 140 mmol/L (135-144)
[2019-05-28] MEDS: BUDESONIDE (NEB) 0.5MG/2ML AMP HHN ×2 (08:00→20:07)
[2019-05-28] MEDS: METHYLPREDNISOLONE 40 MG INJ IV ×2 (09:00→21:15)
[2019-05-28] MEDS: INSULIN ASP PROT/ASPART (70/30) PEN SC ×2 (09:03→21:20)
[2019-05-28] MEDS: CLOPIDOGREL 75 MG TAB GTB (09:05)
[2019-05-28] MEDS: LOSARTAN 25 MG TAB GTB ×2 (09:05→21:14)
[2019-05-28] MEDS: AMLODIPINE 5 MG TAB GTB (09:06)
[2019-05-28 10:47] LABS: AADO2 Arterial 58.5 mmHg (7.0-24.0); Allen Test ACCEPTAB; Arterial Base Excess 1.2 mmol/L (-3.0-3); Arterial COHb 0.2 % (0.0-3.0); Arterial Fraction of Oxyhgb 93.4 % (93.0-99.0); Arterial HCO3 29.5 mmol/L (22.0-26.0); Arterial MetHb 0.4 % (0.0-1.5); Arterial pCO2 62.8 mmhg (35-45); Blood Gas PS 10; MODE VENT - CPAP; Site Right Radial
[2019-05-28] MEDS: PROPOFOL 100 ML IV ×2 (11:30→21:36)
[2019-05-28] MEDS ORDERED: FLUCONAZOLE 100 MG TAB PO (13:30)
[2019-05-28] MEDS: FLUCONAZOLE 100 MG TAB GTB (13:42)
[2019-05-28] MEDS: ATORVASTATIN 20 MG TAB GTB (21:14)
[2019-05-29] MEDS: IPRATROPIUM (HFA) 12.9 GM INHALER INH ×4 (01:17→19:31)
[2019-05-29] MEDS: ALBUTEROL HFA 8 GM INHALER INH ×4 (01:17→19:31)
[2019-05-29] MEDS: INSULIN ASPART [NOVOLOG] 3 ML PEN SC ×6 (01:21→21:59)
[2019-05-29 05:09] LABS: ADD MAN DIFF? NO
[2019-05-29 05:28] LABS: ABNORMAL IP MESSAGE 1; BASOPHILS % 0.1 % (0.0-2.0); EOSINOPHILS % 0.1 % (0.0-7.0); HEMATOCRIT 35.1 % (42.0-52.0); HEMOGLOBIN 11.2 g/dl (14.0-18.0); LYMPHOCYTES # 0.5 10^3/ul (0.8-2.9); LYMPHOCYTES % 4.8 % (15.0-51.0); MEAN CORPUSCULAR HEMOGLOBIN 30.8 pg (29.0-33.0); MEAN CORPUSCULAR HGB CONC 31.9 g/dl (32.0-37.0); MEAN CORPUSCULAR VOLUME 96.4 fl (82.0-101.0); MEAN PLATELET VOLUME 10.7 fl (7.4-10.4); MONOCYTE # 0.6 10^3/ul (0.3-0.9); MONOCYTES % 5.9 % (0.0-11.0); NEUTROPHIL # 9.5 10^3/ul (1.6-7.5); NEUTROPHILS % 87.8 % (39.0-77.0); PLATELET COUNT 216 10^3/UL (140-415); POSITIVE DIFF @See below; RED BLOOD COUNT 3.64 10^6/ul (4.70-6.10); RED CELL DISTRIBUTION WIDTH 14.5 % (11.5-14.5)
[2019-05-29 05:28] LABS: WHITE BLOOD COUNT 10.8 10^3/ul (4.8-10.8)
[2019-05-29] MEDS: LANSOPRAZOLE 30 MG CAP GTB (05:33)
[2019-05-29 05:52] LABS: ALBUMIN 2.4 g/dl (3.3-4.9); ANION GAP 1 (5-13); BLOOD UREA NITROGEN 36 mg/dl (7-20); CALCIUM 8.7 mg/dl (8.4-10.2); CARBON DIOXIDE 31 mmol/L (21-31); CHLORIDE 105 mmol/L (97-110); CREATININE 0.59 mg/dl (0.61-1.24); GLUCOSE 175 mg/dl (70-220); MAGNESIUM 2.4 mg/dl (1.7-2.5); PHOSPHORUS 3.1 mg/dl (2.5-4.9); POTASSIUM 4.1 mmol/L (3.5-5.1); SODIUM 137 mmol/L (135-144)
[2019-05-29] MEDS: PROPOFOL 100 ML IV ×2 (06:48→21:38)
[2019-05-29] MEDS ORDERED: FLUCONAZOLE 100 MG TAB GTB (09:00)
[2019-05-29] MEDS: BUDESONIDE (NEB) 0.5MG/2ML AMP HHN ×2 (09:01→19:31)
[2019-05-29] MEDS: LOSARTAN 25 MG TAB GTB ×2 (09:59→21:00)
[2019-05-29] MEDS: CLOPIDOGREL 75 MG TAB GTB (09:59)
[2019-05-29] MEDS: FLUCONAZOLE 100 MG TAB GTB (09:59)
[2019-05-29] MEDS: AMLODIPINE 5 MG TAB GTB (10:00)
[2019-05-29] MEDS: METHYLPREDNISOLONE 40 MG INJ IV ×2 (10:00→21:38)
[2019-05-29] MEDS: INSULIN ASP PROT/ASPART (70/30) PEN SC ×2 (10:03→21:59)
[2019-05-29] MEDS ORDERED: LACTOBACILLUS RHAMNOSUS CAP PO (16:00)
[2019-05-29] MEDS ORDERED: LACTOBACILLUS RHAMNOSUS CAP GTB (21:00)
[2019-05-29] MEDS: ATORVASTATIN 20 MG TAB GTB (21:38)
[2019-05-29] MEDS: LACTOBACILLUS RHAMNOSUS CAP GTB (21:38)
[2019-05-30] MEDS: IPRATROPIUM (HFA) 12.9 GM INHALER INH ×4 (01:27→19:30)
[2019-05-30] MEDS: ALBUTEROL HFA 8 GM INHALER INH ×4 (01:27→19:29)
[2019-05-30] MEDS: INSULIN ASPART [NOVOLOG] 3 ML PEN SC ×6 (01:41→20:44)
[2019-05-30] MEDS: LANSOPRAZOLE 30 MG CAP GTB (05:05)
[2019-05-30 05:16] LABS: ADD MAN DIFF? NO
[2019-05-30] MEDS: PROPOFOL 100 ML IV ×2 (05:20→15:58)
[2019-05-30 05:25] LABS: ABNORMAL IP MESSAGE 1; BASOPHILS % 0.1 % (0.0-2.0); HEMATOCRIT 36.9 % (42.0-52.0); HEMOGLOBIN 11.7 g/dl (14.0-18.0); LYMPHOCYTES # 0.3 10^3/ul (0.8-2.9); LYMPHOCYTES % 1.9 % (15.0-51.0); MEAN CORPUSCULAR HEMOGLOBIN 30.5 pg (29.0-33.0); MEAN CORPUSCULAR HGB CONC 31.7 g/dl (32.0-37.0); MEAN CORPUSCULAR VOLUME 96.3 fl (82.0-101.0); MEAN PLATELET VOLUME 10.8 fl (7.4-10.4); MONOCYTE # 0.4 10^3/ul (0.3-0.9); MONOCYTES % 2.9 % (0.0-11.0); NEUTROPHIL # 12.7 10^3/ul (1.6-7.5); NEUTROPHILS % 94.3 % (39.0-77.0); PLATELET COUNT 235 10^3/UL (140-415); POSITIVE DIFF @See below; RED BLOOD COUNT 3.83 10^6/ul (4.70-6.10); RED CELL DISTRIBUTION WIDTH 14.4 % (11.5-14.5)
[2019-05-30 05:25] LABS: WHITE BLOOD COUNT 13.4 10^3/ul (4.8-10.8)
[2019-05-30 05:59] LABS: ANION GAP 3 (5-13); BLOOD UREA NITROGEN 33 mg/dl (7-20); CALCIUM 8.7 mg/dl (8.4-10.2); CARBON DIOXIDE 31 mmol/L (21-31); CHLORIDE 103 mmol/L (97-110); CREATININE 0.49 mg/dl (0.61-1.24); GLUCOSE 173 mg/dl (70-220); POTASSIUM 4.4 mmol/L (3.5-5.1); SODIUM 137 mmol/L (135-144)
[2019-05-30 06:07] LABS: ALBUMIN 2.6 g/dl (3.3-4.9); ANION GAP 3 (5-13); BLOOD UREA NITROGEN 32 mg/dl (7-20); CALCIUM 8.8 mg/dl (8.4-10.2); CARBON DIOXIDE 32 mmol/L (21-31); CHLORIDE 103 mmol/L (97-110); CK-MB 0.68 ng/ml (0.0-2.4); CREATININE 0.53 mg/dl (0.61-1.24); GLUCOSE 178 mg/dl (70-220); MAGNESIUM 2.5 mg/dl (1.7-2.5); PHOSPHORUS 3.2 mg/dl (2.5-4.9); POTASSIUM 4.2 mmol/L (3.5-5.1); SODIUM 138 mmol/L (135-144); TROPONIN-I 0.029 ng/ml (0.000-0.120)
[2019-05-30 06:10] LABS: CREATINE KINASE < 20 IU/L (23-200)
[2019-05-30] MEDS: BUDESONIDE (NEB) 0.5MG/2ML AMP HHN ×2 (09:09→19:30)
[2019-05-30] MEDS: METHYLPREDNISOLONE 40 MG INJ IV ×2 (09:23→20:25)
[2019-05-30] MEDS: LOSARTAN 25 MG TAB GTB ×2 (09:26→20:24)
[2019-05-30] MEDS: LACTOBACILLUS RHAMNOSUS CAP GTB ×3 (09:26→20:24)
[2019-05-30] MEDS: CLOPIDOGREL 75 MG TAB GTB (09:26)
[2019-05-30] MEDS: INSULIN ASP PROT/ASPART (70/30) PEN SC ×2 (09:26→20:41)
[2019-05-30] MEDS: FLUCONAZOLE 100 MG TAB GTB (09:26)
[2019-05-30] MEDS: AMLODIPINE 5 MG TAB GTB (09:27)
[2019-05-30] MEDS: morphine 4 MG/ML VIAL IV (10:57)
[2019-05-30] MEDS: hydrALAzine 20 MG INJ IV (11:15)
[2019-05-30 11:50] LABS: CREATINE KINASE 21 IU/L (23-200)
[2019-05-30 12:00] LABS: CK INDEX 2.3; CK-MB 0.48 ng/ml (0.0-2.4); TROPONIN-I 0.012 ng/ml (0.000-0.120)
[2019-05-30] MEDS: ATORVASTATIN 20 MG TAB GTB (20:24)
[2019-05-31] MEDS: PROPOFOL 100 ML IV ×4 (00:10→23:28)
[2019-05-31] MEDS: INSULIN ASPART [NOVOLOG] 3 ML PEN SC ×6 (00:57→20:59)
[2019-05-31] MEDS: IPRATROPIUM (HFA) 12.9 GM INHALER INH ×4 (01:16→19:50)
[2019-05-31] MEDS: ALBUTEROL HFA 8 GM INHALER INH ×4 (01:16→19:50)
[2019-05-31] MEDS: LANSOPRAZOLE 30 MG CAP GTB (05:06)
[2019-05-31 05:09] LABS: AADO2 Arterial 68.4 mmHg (7.0-24.0); Allen Test ACCEPTAB; Arterial Base Excess 7.3 mmol/L (-3.0-3); Arterial Blood Gas Oxygen Sat 96.7 mmHG (95.0-100.0); Arterial COHb 0 % (0.0-3.0); Arterial Fraction of Oxyhgb 96.4 % (93.0-99.0); Arterial HCO3 32.3 mmol/L (22.0-26.0); Arterial MetHb 0.3 % (0.0-1.5); Arterial pCO2 47.3 mmhg (35-45); MODE VENT - AC; Site Right Radial
[2019-05-31 05:36] LABS: ADD MAN DIFF? NO
[2019-05-31 05:54] LABS: WHITE BLOOD COUNT 14.1 10^3/ul (4.8-10.8)
[2019-05-31 05:54] LABS: ABNORMAL IP MESSAGE 1; BASOPHILS % 0.1 % (0.0-2.0); HEMATOCRIT 37.7 % (42.0-52.0); HEMOGLOBIN 12.4 g/dl (14.0-18.0); LYMPHOCYTES # 0.2 10^3/ul (0.8-2.9); LYMPHOCYTES % 1.5 % (15.0-51.0); MEAN CORPUSCULAR HEMOGLOBIN 31.7 pg (29.0-33.0); MEAN CORPUSCULAR HGB CONC 32.9 g/dl (32.0-37.0); MEAN CORPUSCULAR VOLUME 96.4 fl (82.0-101.0); MEAN PLATELET VOLUME 10.8 fl (7.4-10.4); MONOCYTE # 0.6 10^3/ul (0.3-0.9); NEUTROPHIL # 13.2 10^3/ul (1.6-7.5); NEUTROPHILS % 93.3 % (39.0-77.0); PLATELET COUNT 305 10^3/UL (140-415); POSITIVE DIFF @See below; RED BLOOD COUNT 3.91 10^6/ul (4.70-6.10); RED CELL DISTRIBUTION WIDTH 14.5 % (11.5-14.5)
[2019-05-31 06:08] LABS: ALBUMIN 2.5 g/dl (3.3-4.9); ANION GAP 3 (5-13); BLOOD UREA NITROGEN 28 mg/dl (7-20); CALCIUM 8.6 mg/dl (8.4-10.2); CARBON DIOXIDE 32 mmol/L (21-31); CHLORIDE 101 mmol/L (97-110); CREATININE 0.44 mg/dl (0.61-1.24); GLUCOSE 152 mg/dl (70-220); MAGNESIUM 2.4 mg/dl (1.7-2.5); PHOSPHORUS 3.3 mg/dl (2.5-4.9); POTASSIUM 4.5 mmol/L (3.5-5.1); SODIUM 136 mmol/L (135-144)
[2019-05-31] MEDS: BUDESONIDE (NEB) 0.5MG/2ML AMP HHN ×2 (07:57→19:47)
[2019-05-31] MEDS: AMLODIPINE 5 MG TAB GTB (08:30)
[2019-05-31] MEDS: METHYLPREDNISOLONE 40 MG INJ IV ×2 (08:30→20:46)
[2019-05-31] MEDS: CLOPIDOGREL 75 MG TAB GTB (08:30)
[2019-05-31] MEDS: LACTOBACILLUS RHAMNOSUS CAP GTB ×3 (08:30→20:46)
[2019-05-31] MEDS: FLUCONAZOLE 100 MG TAB GTB (08:31)
[2019-05-31] MEDS: LOSARTAN 25 MG TAB GTB ×2 (08:31→20:46)
[2019-05-31] MEDS: INSULIN ASP PROT/ASPART (70/30) PEN SC ×2 (08:43→20:55)
[2019-05-31] MEDS: hydrALAzine 20 MG INJ IV (13:43)
[2019-05-31] MEDS: DEXMEDETOMIDINE IN DEXTROSE 5% 50 ML IV (14:27)
[2019-05-31] MEDS: morphine 4 MG/ML VIAL IV (15:21)
[2019-05-31] MEDS ORDERED: PROPOFOL 100 ML (15:43)
[2019-05-31 17:50] LABS: ADD UMIC YES; UR ASCORBIC ACID 40 mg/dL (NEGATIVE); UR BILIRUBIN (Dip) NEGATIVE (NEGATIVE); UR BLOOD (Dip) 2+ mg/dL (NEGATIVE); UR CLARITY SLIGHTLY CLOUDY (CLEAR); UR COLOR YELLOW (YELLOW); UR GLUCOSE (Dip) NEGATIVE (NEGATIVE); UR KETONES (Dip) NEGATIVE (NEGATIVE); UR LEUKOCYTE ESTERASE (Dip) NEGATIVE Leu/ul (NEGATIVE); UR MUCUS FEW /HPF (NONE SEEN); UR NITRITE (Dip) NEGATIVE (NEGATIVE); UR RBC 84 /HPF (0-5); UR SPECIFIC GRAVITY (Dip) 1.021 (1.003-1.030); UR TOTAL PROTEIN (Dip) 1+ mg/dl (NEGATIVE); UR UROBILINOGEN (Dip) NEGATIVE (NEGATIVE); UR WBC 3 /HPF (0-5)
[2019-05-31] MEDS: ATORVASTATIN 20 MG TAB GTB (20:46)
[2019-06-01] MEDS: INSULIN ASPART [NOVOLOG] 3 ML PEN SC ×6 (00:56→20:19)
[2019-06-01] MEDS: IPRATROPIUM (HFA) 12.9 GM INHALER INH ×4 (01:09→19:42)
[2019-06-01] MEDS: ALBUTEROL HFA 8 GM INHALER INH ×4 (01:10→19:41)
[2019-06-01] MEDS: LANSOPRAZOLE 30 MG CAP GTB (05:08)
[2019-06-01 05:47] LABS: ADD MAN DIFF? NO
[2019-06-01 06:06] LABS: ABNORMAL IP MESSAGE 1; BASOPHILS % 0.2 % (0.0-2.0); HEMATOCRIT 35.4 % (42.0-52.0); HEMOGLOBIN 11.3 g/dl (14.0-18.0); LYMPHOCYTES # 0.2 10^3/ul (0.8-2.9); LYMPHOCYTES % 1.6 % (15.0-51.0); MEAN CORPUSCULAR HEMOGLOBIN 30.5 pg (29.0-33.0); MEAN CORPUSCULAR HGB CONC 31.9 g/dl (32.0-37.0); MEAN CORPUSCULAR VOLUME 95.7 fl (82.0-101.0); MEAN PLATELET VOLUME 10.6 fl (7.4-10.4); MONOCYTE # 0.7 10^3/ul (0.3-0.9); MONOCYTES % 5.9 % (0.0-11.0); NEUTROPHIL # 11.2 10^3/ul (1.6-7.5); NEUTROPHILS % 91.6 % (39.0-77.0); PLATELET COUNT 286 10^3/UL (140-415); POSITIVE DIFF @See below; RED CELL DISTRIBUTION WIDTH 14.4 % (11.5-14.5)
[2019-06-01 06:06] LABS: WHITE BLOOD COUNT 12.2 10^3/ul (4.8-10.8)
[2019-06-01 06:28] LABS: ANION GAP 0 (5-13); BLOOD UREA NITROGEN 31 mg/dl (7-20); CALCIUM 8.5 mg/dl (8.4-10.2); CARBON DIOXIDE 35 mmol/L (21-31); CHLORIDE 102 mmol/L (97-110); CREATININE 0.49 mg/dl (0.61-1.24); GLUCOSE 179 mg/dl (70-220); MAGNESIUM 2.5 mg/dl (1.7-2.5); POTASSIUM 4.5 mmol/L (3.5-5.1); SODIUM 137 mmol/L (135-144)
[2019-06-01] MEDS: PROPOFOL 100 ML IV ×2 (07:54→16:48)
[2019-06-01] MEDS: CLOPIDOGREL 75 MG TAB GTB (09:09)
[2019-06-01] MEDS: LACTOBACILLUS RHAMNOSUS CAP GTB ×3 (09:09→20:11)
[2019-06-01] MEDS: LOSARTAN 25 MG TAB GTB ×2 (09:09→20:24)
[2019-06-01] MEDS: METHYLPREDNISOLONE 40 MG INJ IV ×2 (09:09→20:12)
[2019-06-01] MEDS: AMLODIPINE 5 MG TAB GTB (09:09)
[2019-06-01] MEDS: FLUCONAZOLE 100 MG TAB GTB (09:09)
[2019-06-01] MEDS: INSULIN ASP PROT/ASPART (70/30) PEN SC (09:10)
[2019-06-01] MEDS: ATORVASTATIN 20 MG TAB GTB (20:12)
[2019-06-01] MEDS: NPH, HUMAN INSULIN ISOPHANE 3ML VIAL SC (20:24)
[2019-06-02] MEDS: PROPOFOL 100 ML IV ×4 (00:38→19:36)
[2019-06-02] MEDS: INSULIN ASPART [NOVOLOG] 3 ML PEN SC ×6 (00:48→20:31)
[2019-06-02] MEDS: ALBUTEROL HFA 8 GM INHALER INH ×4 (01:58→20:02)
[2019-06-02] MEDS: IPRATROPIUM (HFA) 12.9 GM INHALER INH ×4 (01:59→20:02)
[2019-06-02 05:13] LABS: ADD MAN DIFF? NO
[2019-06-02 05:17] LABS: WHITE BLOOD COUNT 10.8 10^3/ul (4.8-10.8)
[2019-06-02 05:17] LABS: ABNORMAL IP MESSAGE 1; BASOPHILS % 0.1 % (0.0-2.0); HEMATOCRIT 34.9 % (42.0-52.0); LYMPHOCYTES # 0.2 10^3/ul (0.8-2.9); LYMPHOCYTES % 1.4 % (15.0-51.0); MEAN CORPUSCULAR HEMOGLOBIN 30.6 pg (29.0-33.0); MEAN CORPUSCULAR HGB CONC 31.5 g/dl (32.0-37.0); MEAN CORPUSCULAR VOLUME 97.2 fl (82.0-101.0); MEAN PLATELET VOLUME 10.5 fl (7.4-10.4); MONOCYTE # 0.7 10^3/ul (0.3-0.9); NEUTROPHIL # 9.9 10^3/ul (1.6-7.5); PLATELET COUNT 297 10^3/UL (140-415); POSITIVE DIFF @See below; RED BLOOD COUNT 3.59 10^6/ul (4.70-6.10); RED CELL DISTRIBUTION WIDTH 14.5 % (11.5-14.5)
[2019-06-02 05:41] LABS: ANION GAP 1 (5-13); BLOOD UREA NITROGEN 32 mg/dl (7-20); CALCIUM 8.4 mg/dl (8.4-10.2); CARBON DIOXIDE 35 mmol/L (21-31); CHLORIDE 103 mmol/L (97-110); CREATININE 0.51 mg/dl (0.61-1.24); GLUCOSE 174 mg/dl (70-220); MAGNESIUM 2.6 mg/dl (1.7-2.5); PHOSPHORUS 3.3 mg/dl (2.5-4.9); POTASSIUM 4.7 mmol/L (3.5-5.1); SODIUM 139 mmol/L (135-144)
[2019-06-02] MEDS: LANSOPRAZOLE 30 MG CAP GTB (05:51)
[2019-06-02] MEDS: FLUCONAZOLE 100 MG TAB GTB (08:39)
[2019-06-02] MEDS: LACTOBACILLUS RHAMNOSUS CAP GTB ×3 (08:39→20:26)
[2019-06-02] MEDS: METHYLPREDNISOLONE 40 MG INJ IV ×2 (08:39→20:27)
[2019-06-02] MEDS: LOSARTAN 25 MG TAB GTB ×2 (08:39→20:33)
[2019-06-02] MEDS: AMLODIPINE 5 MG TAB GTB (08:39)
[2019-06-02] MEDS: CLOPIDOGREL 75 MG TAB GTB (08:39)
[2019-06-02] MEDS: NPH, HUMAN INSULIN ISOPHANE 3ML VIAL SC ×2 (08:48→20:30)
[2019-06-02 08:59] LABS: AADO2 Arterial 185.5 mmHg (7.0-24.0); Allen Test ACCEPTAB; Arterial Base Excess 8.2 mmol/L (-3.0-3); Arterial Blood Gas Oxygen Sat 98.9 mmHG (95.0-100.0); Arterial COHb 0.3 % (0.0-3.0); Arterial Fraction of Oxyhgb 98.2 % (93.0-99.0); Arterial HCO3 33.6 mmol/L (22.0-26.0); Arterial MetHb 0.4 % (0.0-1.5); MODE VENT - AC; Site Right Radial
[2019-06-02] MEDS ORDERED: VANCOMYCIN IV PER PHARMACY XX (09:30)
[2019-06-02] MEDS: VANCOMYCIN 1.25 GM/NS 250 ML 250 ML IVPB (11:34)
[2019-06-02] MEDS: ATORVASTATIN 20 MG TAB GTB (20:26)
[2019-06-03] MEDS: INSULIN ASPART [NOVOLOG] 3 ML PEN SC ×6 (00:07→20:41)
[2019-06-03] MEDS: ALBUTEROL HFA 8 GM INHALER INH ×4 (01:39→19:38)
[2019-06-03] MEDS: IPRATROPIUM (HFA) 12.9 GM INHALER INH ×4 (01:39→19:38)
[2019-06-03] MEDS: PROPOFOL 100 ML IV ×4 (03:56→18:18)
[2019-06-03 04:48] LABS: ADD MAN DIFF? NO
[2019-06-03] MEDS: hydrALAzine 20 MG INJ IV (05:02)
[2019-06-03] MEDS: LANSOPRAZOLE 30 MG CAP GTB (05:02)
[2019-06-03] MEDS: VANCOMYCIN 1 GM 250 ML IVPB (05:03)
[2019-06-03 05:05] LABS: ABNORMAL IP MESSAGE 1; BASOPHILS % 0.1 % (0.0-2.0); HEMOGLOBIN 12.5 g/dl (14.0-18.0); LYMPHOCYTES # 0.3 10^3/ul (0.8-2.9); MEAN CORPUSCULAR HEMOGLOBIN 30.3 pg (29.0-33.0); MEAN CORPUSCULAR HGB CONC 31.3 g/dl (32.0-37.0); MEAN CORPUSCULAR VOLUME 96.9 fl (82.0-101.0); MEAN PLATELET VOLUME 10.3 fl (7.4-10.4); MONOCYTE # 0.6 10^3/ul (0.3-0.9); MONOCYTES % 4.6 % (0.0-11.0); NEUTROPHIL # 12.9 10^3/ul (1.6-7.5); NEUTROPHILS % 92.5 % (39.0-77.0); PLATELET COUNT 333 10^3/UL (140-415); POSITIVE DIFF @See below; RED BLOOD COUNT 4.13 10^6/ul (4.70-6.10); RED CELL DISTRIBUTION WIDTH 14.7 % (11.5-14.5)
[2019-06-03 05:05] LABS: WHITE BLOOD COUNT 13.9 10^3/ul (4.8-10.8)
[2019-06-03 05:18] LABS: ANION GAP 2 (5-13); BLOOD UREA NITROGEN 32 mg/dl (7-20); CALCIUM 9.1 mg/dl (8.4-10.2); CARBON DIOXIDE 35 mmol/L (21-31); CHLORIDE 101 mmol/L (97-110); CREATININE 0.52 mg/dl (0.61-1.24); GLUCOSE 140 mg/dl (70-220); MAGNESIUM 2.7 mg/dl (1.7-2.5); PHOSPHORUS 3.3 mg/dl (2.5-4.9); POTASSIUM 4.6 mmol/L (3.5-5.1); SODIUM 138 mmol/L (135-144)
[2019-06-03] MEDS: CLOPIDOGREL 75 MG TAB GTB (08:19)
[2019-06-03] MEDS: AMLODIPINE 5 MG TAB GTB (08:19)
[2019-06-03] MEDS: FLUCONAZOLE 100 MG TAB GTB (08:19)
[2019-06-03] MEDS: METHYLPREDNISOLONE 40 MG INJ IV ×2 (08:22→20:32)
[2019-06-03] MEDS: NPH, HUMAN INSULIN ISOPHANE 3ML VIAL SC ×2 (08:24→20:41)
[2019-06-03] MEDS: LOSARTAN 25 MG TAB GTB (09:00)
[2019-06-03 09:24] LABS: AADO2 Arterial 192.9 mmHg (7.0-24.0); Allen Test ACCEPTAB; Arterial Base Excess 7.4 mmol/L (-3.0-3); Arterial Blood Gas Oxygen Sat 98.1 mmHG (95.0-100.0); Arterial COHb 0.3 % (0.0-3.0); Arterial Fraction of Oxyhgb 97.4 % (93.0-99.0); Arterial HCO3 32.7 mmol/L (22.0-26.0); Arterial MetHb 0.4 % (0.0-1.5); Arterial pCO2 49.2 mmhg (35-45); MODE VENT - AC; Site UVL
[2019-06-03] MEDS: LACTOBACILLUS RHAMNOSUS CAP GTB ×3 (09:53→20:30)
[2019-06-03] MEDS: PIPER-TAZO 3.375 GM IV (PMX) 100 ML IVPB ×3 (09:53→20:43)
[2019-06-03] MEDS: ATORVASTATIN 20 MG TAB GTB (20:30)
[2019-06-04] MEDS: LOSARTAN 25 MG TAB GTB ×2 (00:44→08:44)
[2019-06-04] MEDS: INSULIN ASPART [NOVOLOG] 3 ML PEN SC ×3 (00:48→08:46)
[2019-06-04] MEDS: ALBUTEROL HFA 8 GM INHALER INH ×2 (01:27→07:39)
[2019-06-04] MEDS: IPRATROPIUM (HFA) 12.9 GM INHALER INH ×4 (01:27→20:06)
[2019-06-04 05:05] LABS: ADD MAN DIFF? NO
[2019-06-04 05:08] LABS: WHITE BLOOD COUNT 10.4 10^3/ul (4.8-10.8)
[2019-06-04 05:08] LABS: ABNORMAL IP MESSAGE 1; BASOPHILS % 0.1 % (0.0-2.0); HEMATOCRIT 36.1 % (42.0-52.0); HEMOGLOBIN 11.2 g/dl (14.0-18.0); LYMPHOCYTES # 0.2 10^3/ul (0.8-2.9); LYMPHOCYTES % 1.7 % (15.0-51.0); MEAN CORPUSCULAR HEMOGLOBIN 30.4 pg (29.0-33.0); MEAN CORPUSCULAR VOLUME 98.1 fl (82.0-101.0); MEAN PLATELET VOLUME 10.6 fl (7.4-10.4); MONOCYTE # 0.4 10^3/ul (0.3-0.9); MONOCYTES % 4.1 % (0.0-11.0); NEUTROPHIL # 9.7 10^3/ul (1.6-7.5); NEUTROPHILS % 93.3 % (39.0-77.0); PLATELET COUNT 273 10^3/UL (140-415); POSITIVE DIFF @See below; RED BLOOD COUNT 3.68 10^6/ul (4.70-6.10); RED CELL DISTRIBUTION WIDTH 14.8 % (11.5-14.5)
[2019-06-04 05:35] LABS: ANION GAP 3 (5-13); BLOOD UREA NITROGEN 32 mg/dl (7-20); CALCIUM 8.6 mg/dl (8.4-10.2); CARBON DIOXIDE 34 mmol/L (21-31); CHLORIDE 103 mmol/L (97-110); CREATININE 0.51 mg/dl (0.61-1.24); GLUCOSE 143 mg/dl (70-220); MAGNESIUM 2.6 mg/dl (1.7-2.5); PHOSPHORUS 3.3 mg/dl (2.5-4.9); POTASSIUM 4.7 mmol/L (3.5-5.1); SODIUM 140 mmol/L (135-144)
[2019-06-04] MEDS: PIPER-TAZO 3.375 GM IV (PMX) 100 ML IVPB (05:40)
[2019-06-04] MEDS: LANSOPRAZOLE 30 MG CAP GTB (05:41)
[2019-06-04] MEDS: VANCOMYCIN 1 GM 250 ML IVPB (05:41)
[2019-06-04] MEDS ORDERED: HYDROmorphONE 0.2 MG/ML PCA IV (07:30)
[2019-06-04] MEDS: CLOPIDOGREL 75 MG TAB GTB (08:43)
[2019-06-04] MEDS: METHYLPREDNISOLONE 40 MG INJ IV (08:43)
[2019-06-04] MEDS: LACTOBACILLUS RHAMNOSUS CAP GTB (08:44)
[2019-06-04] MEDS: FLUCONAZOLE 100 MG TAB GTB (08:44)
[2019-06-04] MEDS: AMLODIPINE 5 MG TAB GTB (08:44)
[2019-06-04] MEDS: NPH, HUMAN INSULIN ISOPHANE 3ML VIAL SC (08:45)
[2019-06-04] MEDS: MIDAZOLAM (DRIP) 50 mg/50 mL 50 ML IV ×2 (09:56→18:45)
[2019-06-04] MEDS: morphine 4 MG/ML VIAL IV (20:04)
[2019-06-05] MEDS: morphine 4 MG/ML VIAL IV ×3 (01:18→23:49)
[2019-06-05] MEDS: IPRATROPIUM (HFA) 12.9 GM INHALER INH ×4 (01:41→19:45)
[2019-06-05] MEDS: MIDAZOLAM (DRIP) 50 mg/50 mL 50 ML IV ×3 (05:13→21:38)
[2019-06-06] MEDS: IPRATROPIUM (HFA) 12.9 GM INHALER INH ×4 (01:39→19:23)
[2019-06-06] MEDS: morphine 4 MG/ML VIAL IV ×2 (03:13→19:59)
[2019-06-06] MEDS: MIDAZOLAM (DRIP) 50 mg/50 mL 50 ML IV ×3 (03:40→17:56)
[2019-06-07] MEDS: MIDAZOLAM (DRIP) 50 mg/50 mL 50 ML IV ×4 (00:32→20:23)
[2019-06-07] MEDS: morphine 4 MG/ML VIAL IV ×2 (00:35→05:24)
[2019-06-07] MEDS: IPRATROPIUM (HFA) 12.9 GM INHALER INH ×5 (01:41→19:16)
[2019-06-07] MEDS ORDERED: POTASSIUM CHLORIDE 100 ML IVPB (22:00)
[2019-06-08] MEDS: IPRATROPIUM (HFA) 12.9 GM INHALER INH ×4 (01:46→19:28)
[2019-06-08] MEDS: MIDAZOLAM (DRIP) 50 mg/50 mL 50 ML IV ×3 (05:49→15:28)
[2019-06-08] MEDS ORDERED: morphine 4 MG/ML VIAL IV (07:30)
[2019-06-09] MEDS: MIDAZOLAM (DRIP) 50 mg/50 mL 50 ML IV ×3 (00:01→13:38)
[2019-06-09] MEDS: IPRATROPIUM (HFA) 12.9 GM INHALER INH ×3 (01:40→14:32)
[2019-06-09] MEDS: morphine (DRIP) 100 MG/100 ML 100 ML IV (17:46)
[2019-06-09] MEDS: morphine 10 MG INJ IV (17:47)
[2019-06-09] MEDS: LORAZEPAM 2 MG INJ IV ×2 (17:47→18:12)
[2019-06-09] MEDS: ATROPINE 1% 5 ML OPH SL (18:07)
== END 2019-06-09 18:38 | disposition expired | DRG 870 ==
LOC: E/R 22:20 → ICU 05-20 00:50
PROC: 02HV33Z Insertion of Infusion Device into Superior Vena Cava, Percutaneous Approach (ICD-10-PCS; 2019-05-20)
PROC: 4A133R1 Monitoring of Arterial Saturation, Peripheral, Percutaneous Approach (ICD-10-PCS; 2019-05-20)
PROC: 0BH17EZ Insertion of Endotracheal Airway into Trachea, Via Natural or Artificial Opening (ICD-10-PCS; 2019-05-20)
PROC: 5A1935Z Respiratory Ventilation, Less than 24 Consecutive Hours (ICD-10-PCS; 2019-05-20)
PROC: 5A1955Z Respiratory Ventilation, Greater than 96 Consecutive Hours (ICD-10-PCS; principal; 2019-05-21)
PROC: 0BH17EZ Insertion of Endotracheal Airway into Trachea, Via Natural or Artificial Opening (ICD-10-PCS; 2019-05-21)
DX: A41.9 Sepsis, unspecified organism (principal); J96.02 Acute respiratory failure with hypercapnia; G92 Toxic encephalopathy; R65.21 Severe sepsis with septic shock; J18.1 Lobar pneumonia, unspecified organism; J96.01 Acute respiratory failure with hypoxia; N17.0 Acute kidney failure with tubular necrosis; J44.1 Chronic obstructive pulmonary disease with (acute) exacerbation; J44.0 Chronic obstructive pulmonary disease with (acute) lower respiratory infection; I10 Essential (primary) hypertension; I65.21 Occlusion and stenosis of right carotid artery; Z66 Do not resuscitate; E11.9 Type 2 diabetes mellitus without complications; D64.9 Anemia, unspecified; I49.9 Cardiac arrhythmia, unspecified; F17.210 Nicotine dependence, cigarettes, uncomplicated; J20.9 Acute bronchitis, unspecified; E87.5 Hyperkalemia; Z86.73 Personal history of transient ischemic attack (TIA), and cerebral infarction without residual deficits; F03.90 Unspecified dementia, unspecified severity, without behavioral disturbance, psychotic disturbance, mood disturbance, and anxiety; Z90.49 Acquired absence of other specified parts of digestive tract
CPT/HCPCS: 31500; 36415; 36569; 36600; 70450; 71045; 71250; 74018; 76937; 80048; 80053; 80069; 80307; 81001; 82550; 82553; 82803; 82962; 83605; 83735; 84100; 84132; 84145; 84484; 85025; 85610; 85730; 87040-91; 87070; 87081; 87086; 93005; 93970; 94002; 94003; 94640; 94644; 94664; 94770; 99285-25